=== PATIENT | male | born 1960 | race African-American/Black ===

== ENCOUNTER 2020-04-27 13:26 | Inpatient (IN) | payer MEDICARE, BC ==
[~2020-04-27] VITALS: Ht 175.3 cm; Wt 81.7 kg
[~2020-04-27 13:26] MED LIST: ASPI325T70 PO; CARV3.12 PO; CRESTOR5 MG PO; LISI2.5T PO; POTA10TA12 PO; RISP0.2519 PO
[2020-04-27 14:28] LABS: BASO # 0.1 x10^3/uL (0.0-0.2); BASO % 1 % (0-3); EOS # 0.3 x10^3/uL (0.0-0.7); EOS % 4 % (0-3); HEMATOCRIT 38.7 % (39.0-53.0); HEMOGLOBIN 13.2 g/dL (13.0-17.5); LYMPH # 1.4 x10^3/uL (1.0-4.8); LYMPH % 19 % (24-48); MEAN CORPUSCULAR HEMOGLOBIN 33 pg (25-35); MEAN CORPUSCULAR HGB CONC 34 g/dL (31-37); MEAN CORPUSCULAR VOLUME 96 fL (79-100); MONO # 0.7 x10^3/uL (0.0-1.1); MONO % 9 % (0-9); NEUT % 67 % (31-73); PLATELET COUNT 82 x10^3/uL (140-400); RED BLOOD COUNT 4.03 x10^6/uL (4.30-5.70); RED CELL DISTRIBUTION WIDTH 15.8 % (11.5-14.5); WHITE BLOOD COUNT 7.5 x10^3/uL (4.0-11.0)
--- NOTE | 2020-04-27 14:29 | EKG ---
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
[2020-04-27 14:41] LABS: CALCIUM 8.6 mg/dL (8.5-10.1); CREATININE 1.4 mg/dL (0.7-1.3); GFR 62.6
--- NOTE | 2020-04-27 14:59 | RAD ---
CHEST PA LATERAL History: Reason: dizziness, near syncope / Spl. Instructions: / History: Comparison: None. Findings: Frontal and lateral views of the chest were obtained.. Single lead left-sided ICD is present. Calcified granuloma involving the right midlung and calcified right hilar lymph nodes are present. The cardiomediastinal silhouette is normal. Pulmonary vasculature is normal. The lungs are clear. No pleural effusion or pneumothorax is seen. There is no acute bone abnormality. IMPRESSION: No acute cardiopulmonary process. Electronically signed by: Ace Conte MD (04/27/2020 2:56 PM) [id number]
[2020-04-27 15:08] LABS: ALBUMIN 3.6 g/dL (3.4-5.0); DIRECT BILIRUBIN 0.2 mg/dL (0.0-0.2); TOTAL BILIRUBIN 0.4 mg/dL (0.2-1.0); TOTAL PROTEIN 7.7 g/dL (6.4-8.2)
--- NOTE | 2020-04-27 15:10 | PHYS DOC ---
Past Medical History Past Medical History: Hypertension, PA, Other Additional Past Medical Histor: CARDIAC ARREST -' Past Surgical History: Other Additional Past Surgical Histo: AICD, R ANKLE Smoking Status: Current Every Day Smoker Alcohol Use: Heavy Additional Information: 3-6 'BEERS A DAY' 'MAYBE A SHOT A DAY' General Adult EDM: Chief Complaint: DIZZY/LIGHT HEADED HPI: HPI: Patient is a 5-year-old male who presents the emergency room after having a syncopal episode this morning. Family states that he had a syncopal episode on where he fell and hit his back. He has an appointment with his primary care doctor on Wednesday to be evaluated for this. This was his second syncopal episode in the last couple of months. This morning he was watching TV and got really sweaty and confused. Patient does not remember any of this. He states that when he passes out sometimes he does get dizzy but denies any other symptoms. He does not get chest pain, shortness of breath, headaches, dizziness, numbness, weakness. He states that sometimes he gets leg weakness on both sides. 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 Review of Systems: Review of Systems: General: Denies fever, chills, sweats, fatigue Eyes: Denies drainage, blurred vision, eye redness HENT: Denies rhinorrhea, sore throat, earache Respiratory: Denies cough, shortness of breath, wheezing Cardiac: Denies edema, palpitations, chest pain GI: Denies abdominal pain, Nausea, vomiting MSK: Denies back pain, neck pain Skin: Denies rash, jaundice Neuro: Denies headache. Reports dizziness Psychiatric: Denies SI/HI Heart Score: Risk Factors: Risk Factors: DM, Current or recent (<one month) smoker, HTN, HLP, family history of CAD, obesity. Risk Scores: Score 0 - 3: 2.5% MACE over next 6 weeks - Discharge Home Score 4 - 6: 20.3% MACE over next 6 weeks - Admit for Clinical Observation Score 7 - 10: 72.7% MACE over next 6 weeks - Early Invasive Strategies Allergies: Allergies: Allergies Coded Allergies Type Severity Reaction Last Updated Verified No Known Drug Allergies 02/12/16 No Physical Exam: PE: General: Awake, alert, NAD. Well Nourished, well hydrated. Cooperative HEENT: Atraumatic, EOMI, PERRL, airway patent, moist oral mucosa Neck: Supple, trachea midline Respiratory: CTA bilaterally, normal effort, no wheezing/crackles CV: RRR, no murmur, cap refill <2 GI: Soft, nondistended, nontender, no masses MSK: No obvious deformities Skin: Warm, dry, intact Neuro: A&O x3, speech NL, sensory and motor grossly intact, no focal deficits Psych: Normal affect, normal mood, not suicidal or homicidal Current Patient Data: Labs: Laboratory Tests Test 04/27/20 14:07 04/27/20 14:12 Glucose (Fingerstick) 88 mg/dL (70-99) White Blood Count 7.5 x10^3/uL (4.0-11.0) Red Blood Count 4.03 x10^6/uL (4.30-5.70) L Hemoglobin 13.2 g/dL (13.0-17.5) Hematocrit 38.7 % (39.0-53.0) L Mean Corpuscular Volume 96 fL (79-100) Mean Corpuscular Hemoglobin 33 pg (25-35) Mean Corpuscular Hemoglobin Concent 34 g/dL (31-37) Red Cell Distribution Width 15.8 % (11.5-14.5) H Platelet Count 82 x10^3/uL (140-400) L Neutrophils (%) (Auto) 67 % (31-73) Lymphocytes (%) (Auto) 19 % (24-48) L Monocytes (%) (Auto) 9 % (0-9) Eosinophils (%) (Auto) 4 % (0-3) H Basophils (%) (Auto) 1 % (0-3) Neutrophils # (Auto) 5.0 x10^3/uL (1.8-7.7) Lymphocytes # (Auto) 1.4 x10^3/uL (1.0-4.8) Monocytes # (Auto) 0.7 x10^3/uL (0.0-1.1) Eosinophils # (Auto) 0.3 x10^3/uL (0.0-0.7) Basophils # (Auto) 0.1 x10^3/uL (0.0-0.2) Sodium Level 136 mmol/L (136-145) Potassium Level 5.0 mmol/L (3.5-5.1) Chloride Level 100 mmol/L (98-107) Carbon Dioxide Level 25 mmol/L (21-32) Anion Gap 11 (6-14) Blood Urea Nitrogen 11 mg/dL (8-26) Creatinine 1.4 mg/dL (0.7-1.3) H Estimated GFR (Cockcroft-Gault) 62.6 Glucose Level 86 mg/dL (70-99) Calcium Level 8.6 mg/dL (8.5-10.1) Troponin I Quantitative < 0.017 ng/mL (0.000-0.055) Laboratory Tests 04/27/20 14:12 Laboratory Tests 04/27/20 14:12 Vital Signs: Vital Signs Date Time Temp Pulse Resp B/P (MAP) Pulse Ox O2 Delivery O2 Flow Rate FiO2 04/27/20 13:45 98.1 73 16 137/72 (93) 99 Room Air 98.1 EKG: EKG: [] Radiology/Procedures: Radiology/Procedures: [] Course & Med Decision Making: Course & Med Decision Making Pertinent Labs and Imaging studies reviewed. (See chart for details) Patient is 59-year-old male who presents to the emergency room after having a syncopal episode. Patient is now feeling normal. EKG is normal at this time. There is some uncertain what is the cause of the patient's symptoms. Diffe rential diagnosis includes arrhythmias, kidney failure, vasovagal, neurologic disorders, anemia. CBC, BMP, LFTs, EKG, troponin, BNP, CT head was ordered. Work-up is normal at this time. I have discussed the case with the patient's primary care physician Dr. Ruiz. At this time he recommends admission for cardiology evaluation. He would like a cardiology consult and an echocardiogram were ordered. I have discussed this with the family who are in agreement. Dragon Disclaimer: Dragon Disclaimer: This electronic medical record was generated, in whole or in part, using a voice recognition dictation system. Departure Departure Impression: Primary Impression: Syncope Disposition: 09 ADMITTED INPATIENT Condition: STABLE Referrals: CONNOR RUIZ MD (PCP) Justicifation of Admission Dx: Justifications for Admission: Justification of Admission Dx: Yes BRAVO REED MD Apr 27, 2020 15:10
--- NOTE | 2020-04-27 15:22 | RAD ---
RS Compliance Statement: One or more of the following individualized dose reduction techniques were utilized for this examination: 1. Automated exposure control 2. Adjustment of the mA and/or kV according to patient size 3. Use of iterative reconstruction technique CT HEAD WITHOUT CONTRAST History: Reason: confusion, syncope / Spl. Instructions: / History: Comparison: None. Technique: Axial images are obtained of the head from the skull base through the vertex without IV contrast. Findings: No mass-effect, midline shift, extra-axial fluid collection, hemorrhage, or obvious acute infarction is identified. Basilar cisterns are patent. The ventricles and sulci are prominent, consistent with age-related cerebral atrophy. There is minimal periventricular white matter hypoattenuation. This is a nonspecific finding but is commonly due to chronic small vessel ischemic disease. Bone windows demonstrate no acute calvarial abnormality. Severe mucosal thickening bilateral maxillary and ethmoid sinuses. There is no air-fluid level. Mastoid air cells are well aerated. IMPRESSION: 1. No acute intracranial abnormality. Electronically signed by: Baljinder Cotto MD (04/27/2020 3:19 PM) [id number]
[2020-04-27 17:06] LABS: BILIRUBIN,URINE NEGATIVE (NEG); CLARITY,URINE CLEAR; COLOR,URINE YELLOW; NITRITE,URINE NEGATIVE (NEG); PH,URINE 5.5 (<5.0-8.0); PROTEIN,URINE NEGATIVE (NEG-TRACE); UROBILINOGEN,URINE 0.2 mg/dL (0.2 mg/dL)
[2020-04-27 17:32] LABS: BACTERIA,URINE 0 /HPF (0-FEW); HYALINE CASTS, URINE FEW /HPF; RBC,URINE 0 /HPF (0-2); WBC,URINE 0 /HPF (0-4)
[2020-04-27 19:00] VITALS: BP 160/87
[2020-04-27] MEDS ORDERED: CRESTOR40 MG PO (19:39)
[2020-04-27] MEDS ORDERED: NITR0.4T22 SL (19:39)
[2020-04-27] MEDS ORDERED: RISP1TAB3 PO (19:39)
[2020-04-27] MEDS ORDERED: CARV25TA2 PO (19:39)
[2020-04-27] MEDS ORDERED: ASPI325T11 PO (19:39)
[2020-04-27] MEDS ORDERED: MULT-690 PO (19:39)
[2020-04-27] MEDS ORDERED: LISI10TA2 PO (19:39)
[2020-04-27] MEDS ORDERED: DIPH25CA58 PO (19:39)
[2020-04-27] MEDS ORDERED: NITROGLYCERIN SUBLINGUAL 0.4 MG BOTTLE OF 25. SL PRN (20:00)
[2020-04-27] MEDS: diphenhydrAMINE HCL 25 MG CAPSULE PO PRN (20:34)
[2020-04-27] MEDS: risperiDONE 1 MG TABLET. PO SCH (20:34)
[2020-04-27] MEDS: POTASSIUM CHLORIDE 10 MEQ TABLET.ER. PO SCH (20:34)
[2020-04-27] MEDS: ATORVASTATIN CALCIUM 40 MG TABLET. PO SCH (20:35)
[2020-04-27 21:13] LABS: MAGNESIUM 1.8 mg/dL (1.8-2.4)
[2020-04-27 21:14] LABS: CHOLESTEROL/HDL RATIO 2.2
[2020-04-27] MEDS ORDERED: NICOTINE 7MG PATCH. TD PRN (22:15)
--- NOTE | 2020-04-27 22:15 | NUR ---
Patient arrived to unit approx 1830 with nurse and patient daughter. Assessment complete, VS stable. Reviewed health history and medications with patient and daughter. Patient states that he fell on 04/25 and "blackout or something", states that he doesn't know why he fell. Daughter provided nurse with home medication list. Patients daughter states that patient drinks at least 6 beers per day and also drinks crown up to 1 pint per day. Patient smokes approx 1 ppd cigarettes. no complaints of pain at this time, resting comfortably on RA. Call light in reach, orientated patient to unit. reviewed visiting policy with patient daughter. Call light in reach, bed in low locked position, reminded patient to call before ambulating, will continue to monitor.
[2020-04-27 23:36] VITALS: BP 148/70
[2020-04-28] VITALS (9 sets, daily range): BP systolic 101–149; BP diastolic 66–81
--- NOTE | 2020-04-28 00:40 | NUR ---
per patient he is followed by cardiology at
[2020-04-28] MEDS: LORazepam 0.5 MG TABLET PO PRN (00:55)
[2020-04-28] MEDS: CARVEDILOL 12.5 MG TABLET. PO SCH ×2 (08:25→17:30)
[2020-04-28] MEDS: POTASSIUM CHLORIDE 10 MEQ TABLET.ER. PO SCH (08:25)
[2020-04-28] MEDS: LISINOPRIL 10 MG TABLET PO SCH (08:25)
[2020-04-28] MEDS: diphenhydrAMINE HCL 25 MG CAPSULE PO PRN ×3 (08:25→20:51)
[2020-04-28] MEDS: ASPIRIN ENTERIC COATED 325 MG TABLET.DR. PO SCH (08:25)
[2020-04-28] MEDS: risperiDONE 1 MG TABLET. PO SCH ×2 (08:26→20:51)
[2020-04-28] MEDS: MULTIVITAMIN I-VITE TABLET. PO SCH (08:26)
[2020-04-28] MEDS: THIAMINE 100 MG TABLET. PO SCH (08:26)
--- NOTE | 2020-04-28 10:32 | CONS ---
DATE OF CONSULTATION: 04/28/2020 REASON FOR CONSULTATION: Syncope. CONSULTING PHYSICIAN: Dr. Shiraz Ruiz. HISTORY OF PRESENT ILLNESS: The patient is a 59-year-old man with past medical history as noted below, who presented to the hospital in the setting of recurrent syncopal episodes. He does not have any associated prodromal symptoms nor any cardiovascular symptoms such as angina or palpitations. He had an episode 3 days prior to admission and another episode yesterday, which prompted ER arrival. Upon arrival to the ER, he had stable vital signs and was afebrile. His EKG was also unremarkable and he was admitted for further evaluation and treatment. PAST MEDICAL HISTORY: 1. Coronary artery disease with a prior history of 100% RCA occlusion in 2001. 2. Ischemic cardiomyopathy with the most recent ejection fraction of 55% per outside hospital records, status post single chamber ICD. 3. Hypertension. 4. Tobacco and alcohol abuse. 5. Prior history of ventricular tachycardia. 6. Sleep apnea. 7. Dyslipidemia. 8. History of hypoxic encephalopathy. SOCIAL HISTORY: As noted above. The patient uses alcohol and smokes cigarettes. FAMILY HISTORY: Noncontributory. ALLERGIES: No known drug allergies. REVIEW OF SYSTEMS: Negative unless otherwise mentioned above in HPI. PHYSICAL EXAMINATION: GENERAL: He is alert and oriented, no acute distress, cooperative. HEAD AND NECK: Unremarkable. CARDIAC: Regular rate and rhythm. RESPIRATORY: Normal. GASTROINTESTINAL: Within normal limits. MUSCULOSKELETAL: No obvious trauma. SKIN: No rashes. NEUROLOGIC: No focal deficits. PSYCHIATRIC: Normal mood and affect. DIAGNOSTIC STUDIES: Cardiac enzymes are negative x 1. Creatinine is at 1.4. EKG is unremarkable. Head CT reveals no acute abnormalities. Chest x-ray reveals no acute process. IMPRESSION: 1. Syncope: Etiology unclear. Review of prior records demonstrates that the patient does have a diagnosis of cough related syncope, this is likely a vasovagal episode. 2. History of ischemic cardiomyopathy, status post ICD for secondary prevention. He has not had any recent ischemic evaluation. RECOMMENDATIONS: We will plan for an echocardiogram to determine that he has a structurally normal heart and we will have his ICD interrogated to ensure no obvious arrhythmias were noted. No significant suspicion for ischemia at this time. Thank you for this consultation. CAREY ALEGRIA MD DR: SUNIL/jose JOB#: [id number] / [id number]
--- NOTE | 2020-04-28 11:06 | PDOC ---
Provider Note Provider Note history and physical dictated # [id number] Justicifation of Admission Dx: Justifications for Admission: Justification of Admission Dx: Yes CONNOR LEBLANC MD Apr 28, 2020 11:06
[2020-04-28] MEDS: NICOTINE 21MG PATCH. TD SCH (11:55)
--- NOTE | 2020-04-28 11:55 | HP ---
ADMIT DATE: 04/27/2020 LOCATION: He is in room 260. HISTORY OF PRESENT ILLNESS: The patient is a 59-year-old -Mex[place] male with history of hypertension, hyperlipidemia, coronary artery disease, alcoholism, cigarette smoker, who has a history of sudden cardiac , resuscitated, has an AICD with a generator replaced in 2016 and sustained a myocardial infarction in 2001. He was admitted to [facility] at the Emergency Room on 04/27/2020 with a syncopal episode. He is a poor historian and he does have a history of hypoxic encephalopathy and had stents from his previous cardiac arrest. He apparently had a syncopal episode last while sitting down and watching TV when he developed some diaphoresis and dizziness without any chest pain or shortness of breath. Apparently, he had one yesterday although yesterday according to the Cardiology note he denies that. In any case, he says he has had a couple of syncopal episodes, he believes in the last month. Denies any exertional chest pain or shortness of breath. He smokes about a pack per day, drinks excessive beer and hard liquor. He is therefore admitted for further evaluation of syncope. ALLERGIES: None. MEDICATIONS: Aspirin 325 mg every day, carvedilol 25 mg b.i.d., Crestor 40 mg every day, lisinopril 10 mg every day, multiple vitamin once a day, nitroglycerin 0.4 mg sublingual p.r.n., potassium chloride 10 mEq b.i.d., risperidone 1 mg b.i.d. PAST MEDICAL HISTORY: Significant for sudden cardiac arrest in 2016 with hypoxic encephalopathy and AICD placed. He had a myocardial infarction in 2001. He has coronary artery disease and his last echocardiogram showed a left ventricular ejection fraction of 50%. He has hypertension, hyperlipidemia, myocardial infarction in 2001, gastroesophageal reflux disease, open reduction and internal fixation for right ankle fracture in 2001. He has chronic kidney disease stage 2. he has baseline serum creatinine 1.3. SOCIAL HISTORY: Drinks excessive alcohol, beer and hard liquor. Smokes about a pack per day of cigarettes. FAMILY HISTORY: Noncontributory. REVIEW OF SYSTEMS: GENERAL: Denies any fever, chills or sweats in the last 3 days, although he did have sweats at one time when he had a syncopal episode. CARDIOVASCULAR: No chest pain. PULMONARY: No cough or shortness of breath. GASTROINTESTINAL: No constipation. ENDOCRINE: No diabetes mellitus. SKIN: No rashes. Rest of systems reviewed are negative except as stated in history of present illness. PHYSICAL EXAMINATION: VITAL SIGNS: Temperature 98.5 degrees, apical pulse is 82, respiratory rate 16, blood pressure 149/78. Oxygen saturation 95% on room air. HEENT: Gaze is conjugate. Mouth is symmetrical. NECK: There is no cervical lymphadenopathy or carotid bruits. HEART: S1, S2. There is no S3 or murmur. LUNGS: Clear. ABDOMEN: Soft with no hepatosplenomegaly or mass. He has got umbilical hernia. EXTREMITIES: Lower extremities without edema. SKIN: No rashes. NEUROLOGIC: He has a little bit of a tremor in his hands when he gripped my hands. Otherwise, he did not have a resting tremor. 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 There is also no facial asymmetry. SKIN: No rashes. LABORATORY DATA: His white count 7.5, hemoglobin 15.2 with a platelet count of 82,000. He had 67 polys, 19 lymphocytes. He had a sodium 136, potassium 5.0, chloride was 100, total CO2 is 25, BUN 11, creatinine 1.4, SGOT of 109, SGPT of 103. His troponin level is less than 0.017. Albumin 3.6. Total cholesterol was 134. LDL cholesterol 65, HDL cholesterol was 62 and triglycerides were 37. EKG showed no acute change in sinus rhythm. Chest x-ray was unremarkable with clear lungs and CD noted. Pulmonary vascularity was normal. Heart size was normal. There was no pneumothorax. CAT scan of the head was unremarkable for any acute abnormality. He had severe mucosal thickening of the bilateral maxillary and ethmoid sinuses. No air fluid level. Mastoid air cells are well aerated. ASSESSMENT: 1. Recurrent syncope of undetermined etiology. 2. Coronary artery disease. 3. Hypertension. 4. Hyperlipidemia. 5. Alcoholism. 6. Cigarette smoker. 7. Alcohol hepatitis. 8. 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 9. Cardiac arrest and sudden . 10. Chronic kidney disease stage 2. 11. Thrombocytopenia, suspect it is related to his alcoholism. PLAN: At this time is to consult Dr. Hilton who has already seen the patient. An echocardiogram has been ordered. We will have his defibrillator/pacemaker interrogated. Also consult the condominium property manager for the thrombocytopenia and also check vitamin B12 level. I have resumed his multiple vitamin. Avoid nonsteroidal anti-inflammatory drugs. Decrease his potassium chloride to 10 mEq every day from b.i.d. His potassium is on the high side of normal. Continue with heart monitoring and we will put him on a nicotine patch. We discussed importance of quitting alcohol and smoking cessation. He has not been motivated in the past to do so. We will order some p.r.n. lorazepam because he has alcohol withdrawal. His magnesium level was normal at 1.8. CONNOR LEBLANC MD DR: JULIA/jose JOB#: [id number] / [id number]
[2020-04-28] MEDS: ATORVASTATIN CALCIUM 40 MG TABLET. PO SCH (20:51)
[2020-04-29 03:26] VITALS: BP 126/85
[2020-04-29 05:12] LABS: BASO # 0.1 x10^3/uL (0.0-0.2); BASO % 1 % (0-3); EOS # 0.3 x10^3/uL (0.0-0.7); EOS % 5 % (0-3); HEMATOCRIT 37.8 % (39.0-53.0); HEMOGLOBIN 12.9 g/dL (13.0-17.5); LYMPH # 1.4 x10^3/uL (1.0-4.8); LYMPH % 24 % (24-48); MEAN CORPUSCULAR HEMOGLOBIN 33 pg (25-35); MEAN CORPUSCULAR HGB CONC 34 g/dL (31-37); MEAN CORPUSCULAR VOLUME 98 fL (79-100); MONO # 0.7 x10^3/uL (0.0-1.1); MONO % 12 % (0-9); NEUT # 3.4 x10^3/uL (1.8-7.7); NEUT % 58 % (31-73); PLATELET COUNT 67 x10^3/uL (140-400); RED BLOOD COUNT 3.86 x10^6/uL (4.30-5.70); RED CELL DISTRIBUTION WIDTH 15.9 % (11.5-14.5); WHITE BLOOD COUNT 5.7 x10^3/uL (4.0-11.0)
[2020-04-29 05:33] LABS: CALCIUM 9.2 mg/dL (8.5-10.1); CREATININE 1.5 mg/dL (0.7-1.3); GFR 57.8
[2020-04-29 07:00] VITALS: BP 157/84
[2020-04-29] MEDS: MULTIVITAMIN I-VITE TABLET. PO SCH (08:20)
[2020-04-29] MEDS: NICOTINE 21MG PATCH. TD SCH (08:20)
[2020-04-29] MEDS: THIAMINE 100 MG TABLET. PO SCH (08:20)
[2020-04-29] MEDS: LISINOPRIL 10 MG TABLET PO SCH (08:21)
[2020-04-29] MEDS: CARVEDILOL 12.5 MG TABLET. PO SCH ×2 (08:21→17:20)
[2020-04-29] MEDS: risperiDONE 1 MG TABLET. PO SCH ×2 (08:22→21:06)
[2020-04-29] MEDS: ASPIRIN ENTERIC COATED 325 MG TABLET.DR. PO SCH (08:22)
[2020-04-29] MEDS: POTASSIUM CHLORIDE 10 MEQ TABLET.ER. PO SCH (08:22)
--- NOTE | 2020-04-29 10:33 | PDOC ---
PROGRESS NOTES Date of Service DATE: 04/29/20 TIME: 10:29 Subjective Subjective confused last night. discussed with patient and family that he needs to avoid alcohol and cigarettes. lab reviewed,. discussed with nurse. no arrhythmia. denies dizziness with standing up and walking. Objective Objective Vital Signs Date Time Temp Pulse Resp B/P (MAP) Pulse Ox O2 Delivery O2 Flow Rate FiO2 04/29/20 08:21 89 157/84 04/29/20 07:00 98.0 20 98 Room Air 98.0 Intake and Output 04/29/20 07:00 Intake Total 2160 ml Balance 2160 ml Intake Oral 2160 ml # Voids 11 Physical Exam Abdomen: Soft Heart: Regular rate, Normal S1, Normal S2 Extremities: No edema General: Alert HEENT: Atraumatic Lungs: Clear to auscultation Neuro: Normal speech Psych/Mental Status: Mental status NL, Mood NL, Other (oriented to year and month and place) Skin: No rashes Assessment Assessment Problems1. Recurrent syncope of undetermined etiology. 2. Coronary artery disease. 3. Hypertension. 4. Hyperlipidemia. 5. Alcoholism. 6. Cigarette smoker. 7. Alcohol hepatitis. 8. 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 9. Cardiac arrest and sudden . 10. Chronic kidney disease stage 2. 11. Thrombocytopenia, suspect it is related to his alcoholism. altered mental status. suspect due to alcohol withdrawal Medical Problems: (1) Syncope Status: Acute Plan Plan of Care consult dr. luong MRI brain echocardiogram iv lorazepam prn alcohol withdrawal telemetry alcohol and cigarette smoking cessation discussed with patient and family Comment Review of Relevant I have reviewed the following items kyara (where applicable) has been applied. Labs Laboratory Tests Test 04/27/20 14:07 04/27/20 14:12 04/27/20 16:59 04/29/20 04:20 Glucose (Fingerstick) 88 mg/dL (70-99) White Blood Count 7.5 x10^3/uL (4.0-11.0) 5.7 x10^3/uL (4.0-11.0) Red Blood Count 4.03 x10^6/uL (4.30-5.70) 3.86 x10^6/uL (4.30-5.70) Hemoglobin 13.2 g/dL (13.0-17.5) 12.9 g/dL (13.0-17.5) Hematocrit 38.7 % (39.0-53.0) 37.8 % (39.0-53.0) Mean Corpuscular Volume 96 fL (79-100) 98 fL (79-100) Mean Corpuscular Hemoglobin 33 pg (25-35) 33 pg (25-35) Mean Corpuscular Hemoglobin Concent 34 g/dL (31-37) 34 g/dL (31-37) Red Cell Distribution Width 15.8 % (11.5-14.5) 15.9 % (11.5-14.5) Platelet Count 82 x10^3/uL (140-400) 67 x10^3/uL (140-400) Neutrophils (%) (Auto) 67 % (31-73) 58 % (31-73) Lymphocytes (%) (Auto) 19 % (24-48) 24 % (24-48) Monocytes (%) (Auto) 9 % (0-9) 12 % (0-9) Eosinophils (%) (Auto) 4 % (0-3) 5 % (0-3) Basophils (%) (Auto) 1 % (0-3) 1 % (0-3) Neutrophils # (Auto) 5.0 x10^3/uL (1.8-7.7) 3.4 x10^3/uL (1.8-7.7) Lymphocytes # (Auto) 1.4 x10^3/uL (1.0-4.8) 1.4 x10^3/uL (1.0-4.8) Monocytes # (Auto) 0.7 x10^3/uL (0.0-1.1) 0.7 x10^3/uL (0.0-1.1) Eosinophils # (Auto) 0.3 x10^3/uL (0.0-0.7) 0.3 x10^3/uL (0.0-0.7) Basophils # (Auto) 0.1 x10^3/uL (0.0-0.2) 0.1 x10^3/uL (0.0-0.2) Sodium Level 136 mmol/L (136-145) 138 mmol/L (136-145) Potassium Level 5.0 mmol/L (3.5-5.1) 4.0 mmol/L (3.5-5.1) Chloride Level 100 mmol/L (98-107) 103 mmol/L (98-107) Carbon Dioxide Level 25 mmol/L (21-32) 27 mmol/L (21-32) Anion Gap 11 (6-14) 8 (6-14) Blood Urea Nitrogen 11 mg/dL (8-26) 17 mg/dL (8-26) Creatinine 1.4 mg/dL (0.7-1.3) 1.5 mg/dL (0.7-1.3) Estimated GFR (Cockcroft-Gault) 62.6 57.8 Glucose Level 86 mg/dL (70-99) 94 mg/dL (70-99) Calcium Level 8.6 mg/dL (8.5-10.1) 9.2 mg/dL (8.5-10.1) Magnesium Level 1.8 mg/dL (1.8-2.4) Total Bilirubin 0.4 mg/dL (0.2-1.0) Direct Bilirubin 0.2 mg/dL (0.0-0.2) Aspartate Amino Transf (AST/SGOT) 103 U/L (15-37) Alanine Aminotransferase (ALT/SGPT) 109 U/L (16-63) Alkaline Phosphatase 55 U/L (46-116) Troponin I Quantitative < 0.017 ng/mL (0.000-0.055) Total Protein 7.7 g/dL (6.4-8.2) Albumin 3.6 g/dL (3.4-5.0) Triglycerides Level 37 mg/dL (0-150) Cholesterol Level 134 mg/dL (0-200) LDL Cholesterol, Calculated 65 mg/dL (0-100) VLDL Cholesterol, Calculated 7 mg/dL (0-40) Non-HDL Cholesterol Calculated 72 mg/dL (0-129) HDL Cholesterol 62 mg/dL (40-60) Cholesterol/HDL Ratio 2.2 Urine Collection Type Unknown Urine Color Yellow Urine Clarity Clear Urine pH 5.5 (<5.0-8.0) Urine Specific [place] 1.010 (1.000-1.030) Urine Protein Negative mg/dL (NEG-TRACE) Urine Glucose (UA) Negative mg/dL (NEG) Urine Ketones (Stick) Negative mg/dL (NEG) Urine Blood Negative (NEG) Urine Nitrite Negative (NEG) Urine Bilirubin Negative (NEG) Urine Urobilinogen Dipstick 0.2 mg/dL (0.2 mg/dL) Urine Leukocyte Esterase Negative (NEG) Urine RBC 0 /HPF (0-2) Urine WBC 0 /HPF (0-4) Urine Bacteria 0 /HPF (0-FEW) Urine Hyaline Casts Few /HPF Urine Mucus Slight /LPF Laboratory Tests Test 04/29/20 04:20 White Blood Count 5.7 x10^3/uL (4.0-11.0) Red Blood Count 3.86 x10^6/uL (4.30-5.70) Hemoglobin 12.9 g/dL (13.0-17.5) Hematocrit 37.8 % (39.0-53.0) Mean Corpuscular Volume 98 fL (79-100) Mean Corpuscular Hemoglobin 33 pg (25-35) Mean Corpuscular Hemoglobin Concent 34 g/dL (31-37) Red Cell Distribution Width 15.9 % (11.5-14.5) Platelet Count 67 x10^3/uL (140-400) Neutrophils (%) (Auto) 58 % (31-73) Lymphocytes (%) (Auto) 24 % (24-48) Monocytes (%) (Auto) 12 % (0-9) Eosinophils (%) (Auto) 5 % (0-3) Basophils (%) (Auto) 1 % (0-3) Neutrophils # (Auto) 3.4 x10^3/uL (1.8-7.7) Lymphocytes # (Auto) 1.4 x10^3/uL (1.0-4.8) Monocytes # (Auto) 0.7 x10^3/uL (0.0-1.1) Eosinophils # (Auto) 0.3 x10^3/uL (0.0-0.7) Basophils # (Auto) 0.1 x10^3/uL (0.0-0.2) Sodium Level 138 mmol/L (136-145) Potassium Level 4.0 mmol/L (3.5-5.1) Chloride Level 103 mmol/L (98-107) Carbon Dioxide Level 27 mmol/L (21-32) Anion Gap 8 (6-14) Blood Urea Nitrogen 17 mg/dL (8-26) Creatinine 1.5 mg/dL (0.7-1.3) Estimated GFR (Cockcroft-Gault) 57.8 Glucose Level 94 mg/dL (70-99) Calcium Level 9.2 mg/dL (8.5-10.1) Medications Current Medications Aspirin (Ecotrin) 325 mg DAILY PO Last administered on 04/29/20 08:22; Start 04/28/20 at 09:00 Diphenhydramine HCl (Benadryl) 25 mg PRN Q4HRS PRN PO ALLERGIES Last administered on 04/28/20 20:51; Start 04/27/20 at 20:00 Lisinopril (Prinivil) 10 mg DAILY PO Last administered on 04/29/20 08:21; Start 04/28/20 at 09:00 Nitroglycerin (Nitrostat) 0.4 mg PRN Q5MIN PRN SL CHEST PAIN; Start 04/27/20 at 20:00 Potassium Chloride (Klor-Con) 10 meq BID PO Last administered on 04/28/20 08:25; Start 04/27/20 at 21:00; Stop 04/28/20 at 10:56; Status DC Risperidone (RisperDAL) 1 mg BID PO Last administered on 04/29/20 08:22; Start 04/27/20 at 21:00 Carvedilol (Coreg) 25 mg BIDWMEALS PO Last administered on 04/29/20 08:21; Start 04/28/20 at 08:00 Multivitamins/ Minerals (I-Alex) 1 tab DAILY PO Last administered on 04/29/20 08:20; Start 04/28/20 at 09:00 Atorvastatin Calcium (Lipitor) 80 mg QHS PO Last administered on 04/28/20 20:51; Start 04/27/20 at 21:00 Thiamine Mononitrate (Vitamin B-1) 100 mg DAILY PO Last administered on 04/29/20 08:20; Start 04/28/20 at 09:00 Lorazepam (Ativan) 0.5 mg PRN Q6HRS PRN PO ANXIETY / AGITATION Last administered on 04/28/20 00:55; Start 04/27/20 at 20:00 Nicotine (Nicoderm Cq 7mg) 1 patch PRN DAILY PRN TD SMOKING CESSATION; Start 04/27/20 at 22:15; Stop 04/28/20 at 10:59; Status DC Potassium Chloride (Klor-Con) 10 meq DAILY PO Last administered on 04/29/20at 08:22; Start 04/29/20 at 09:00 Nicotine (Nicoderm Cq 21mg) 1 patch DAILY TD Last administered on 04/29/20at 08:20; Start 04/28/20 at 12:00 Lorazepam (Ativan Inj) 1 mg PRN Q6HRS PRN IVP ANXIETY / AGITATION; Start 04/28/20 at 18:00 Active Scripts Active Reported NITROGLYCERIN SubLingual (Nitroglycerin) 0.4 Mg Tab.subl 0.4 Mg SL PRN Q5MIN PRN Benadryl (Diphenhydramine Hcl) 25 Mg Capsule 25 Mg PO PRN Q4HRS PRN Centrum Silver Men Tablet (Multivit-Min/FA/Lycopen/Lutein) 1 Each Tablet 1 Each PO DAILY Aspirin Ec (Aspirin) 325 Mg Tablet.dr 325 Mg PO DAILY Crestor (Rosuvastatin Calcium) 40 Mg Tablet 40 Mg PO HS Risperidone 1 Mg Tablet 1 Mg PO BID Carvedilol 25 Mg Tablet 25 Mg PO BIDWMEALS Lisinopril 10 Mg Tablet 10 Mg PO DAILY Potassium Chloride (Potassium Chloride) 10 Meq Capsule.er 10 Meq PO BID Vitals/I & O Vital Sign - Last 24 Hours 04/28/20 04/28/20 04/28/20 04/28/20 11:21 11:25 11:30 11:35 Temp 98.4 98.4 Pulse 65 87 93 94 Resp 16 B/P (MAP) 134/81 (98) 140/75 (96) 120/66 (84) 109/77 (88) Pulse Ox 95 O2 Delivery Room Air 04/28/20 04/28/20 04/28/20 04/28/20 14:50 17:30 19:45 19:50 Temp 98.2 98.0 98.2 98.0 Pulse 89 89 99 Resp 18 18 B/P (MAP) 111/73 (86) 111/73 101/68 (79) Pulse Ox 96 97 O2 Delivery Room Air Room Air Room Air 04/28/20 04/29/20 04/29/20 04/29/20 23:00 03:26 07:00 08:21 Temp 98.6 97.1 98.0 98.6 97.1 98.0 Pulse 91 98 89 89 Resp 20 B/P (MAP) 118/66 (83) 126/85 (99) 157/84 (108) 157/84 Pulse Ox 97 92 98 O2 Delivery Room Air Room Air Room Air 04/29/20 08:21 Pulse 89 B/P (MAP) 157/84 Intake and Output 04/28/20 04/28/20 04/29/20 15:00 23:00 07:00 Intake Total 480 ml 1140 ml 540 ml Balance 480 ml 1140 ml 540 ml Justicifation of Admission Dx: Justifications for Admission: Justification of Admission Dx: Yes CONNOR LEBLANC MD Apr 29, 2020 10:33
[2020-04-29 10:44] VITALS: BP 142/77
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
--- NOTE | 2020-04-29 12:41 | PDOC ---
DANIEL HERNANDEZ [employer]OL SETTER 04/29/20 1241: CARDIO Progress Notes Date and Time Date of Service 04/29/20 Time of Evaluation 1235 Subjective Subjective: No Chest Pain, No shortness of breath, No Palpitations Vitals Vitals Vital Signs Date Time Temp Pulse Resp B/P (MAP) Pulse Ox O2 Delivery O2 Flow Rate FiO2 04/29/20 10:44 97.9 69 20 142/77 (98) 98 Room Air 97.9 Weight Weight [ ] Input and Output Intake and Output Intake and Output 04/29/20 07:00 Intake Total 2160 ml Balance 2160 ml Intake Oral 2160 ml # Voids 11 Laboratory Labs Laboratory Tests Test 04/29/20 04:20 White Blood Count 5.7 x10^3/uL (4.0-11.0) Red Blood Count 3.86 x10^6/uL (4.30-5.70) Hemoglobin 12.9 g/dL (13.0-17.5) Hematocrit 37.8 % (39.0-53.0) Mean Corpuscular Volume 98 fL (79-100) Mean Corpuscular Hemoglobin 33 pg (25-35) Mean Corpuscular Hemoglobin Concent 34 g/dL (31-37) Red Cell Distribution Width 15.9 % (11.5-14.5) Platelet Count 67 x10^3/uL (140-400) Neutrophils (%) (Auto) 58 % (31-73) Lymphocytes (%) (Auto) 24 % (24-48) Monocytes (%) (Auto) 12 % (0-9) Eosinophils (%) (Auto) 5 % (0-3) Basophils (%) (Auto) 1 % (0-3) Neutrophils # (Auto) 3.4 x10^3/uL (1.8-7.7) Lymphocytes # (Auto) 1.4 x10^3/uL (1.0-4.8) Monocytes # (Auto) 0.7 x10^3/uL (0.0-1.1) Eosinophils # (Auto) 0.3 x10^3/uL (0.0-0.7) Basophils # (Auto) 0.1 x10^3/uL (0.0-0.2) Sodium Level 138 mmol/L (136-145) Potassium Level 4.0 mmol/L (3.5-5.1) Chloride Level 103 mmol/L (98-107) Carbon Dioxide Level 27 mmol/L (21-32) Anion Gap 8 (6-14) Blood Urea Nitrogen 17 mg/dL (8-26) Creatinine 1.5 mg/dL (0.7-1.3) Estimated GFR (Cockcroft-Gault) 57.8 Glucose Level 94 mg/dL (70-99) Calcium Level 9.2 mg/dL (8.5-10.1) Physical Exam HEENT: Neck Supple W Full Motion Chest: Symmetric LUNGS: Clear to Auscultation Heart: S1S2, RRR Abdomen: Soft N/T Extremities: No Edema Neurology: alert, confused Assessment Assessment 1. Syncope; ? vasovagal. Device interrogation without significant contributing arrhythmia. No orthostasis noted. EEG today 2 . 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 ICM; s/p AICD. Most recent echo shows LV recovery with EF 55% 4. Hypertension; controlled 5. Dyslipidemia; Lipids on goal 6. CKD 7. H/o VT, cardiac arrest 8. JANINE 9. Tobacco and alcohol abuse. Discussed cessation 10. H/o hypoxic encephalopathy Recommendations Secondary prevention Continue ASA, statin, BB, ACEi Alcohol cessation Consider outpatient ischemic evaluation Supportive care Justicifation of Admission Dx: Justifications for Admission: Justification of Admission Dx: Yes CAREY ALEGRIA MD 04/29/20 1734: CARDIO Progress Notes Plan Plan Patient seen and examined. Agree with above nurse practitioner note. Supportive care. DANIEL HERNANDEZ APRN Apr 29, 2020 12:41 CAREY ALEGRIA MD Apr 29, 2020 17:34
[2020-04-29 14:49] VITALS: BP_SYST 129; BP_SYST 143; BP_DIAS 64; BP_DIAS 95
--- NOTE | 2020-04-29 15:34 | EEG ---
DATE OF SERVICE: 04/29/2020 EEG NUMBR: [id number] OBJECTIVE: The patient is a 59-year-old male with episodes of syncope as well as confusion episodes. DESCRIPTION: This is a digital study. Electrodes are placed according to the international 10-20 system. Bipolar and referential montages are available. Activation procedures typically include hyperventilation and intermittent photic stimulation. INTERPRETATION: The waking background consists of 8-9 Hz, 20-50 microvolt activity, symmetrically distributed over parietooccipital regions and reactive to eye opening. Hyperventilation and intermittent photic stimulation are noncontributory. Stage 1 sleep is achieved with normal electroencephalogram patterns. IMPRESSION: This electroencephalogram with the patient awake and asleep is within normal limits. There is no focal, paroxysmal, or epileptiform activity. Thank you for letting us help with the patient's care. RADHA CLARK MD DR: ANA/jose JOB#: [id number] / [id number]
--- NOTE | 2020-04-29 16:06 | NUR ---
SS following for discharge planning. SS reviewed pt chart and discussed with pt RN. Pt is from home with spouse and is currently on room air. SS will continue to follow for discharge planning.
--- NOTE | 2020-04-29 16:31 | CARD ---
MR#: [id number] Date of Study: 04/29/2020 Ordering Physician: BRAVO REED, Referring Physician: BRAVO REED, Tech: Theodora Neal NUPUR APPROVED REPORT EXAM: Two-dimensional and M-mode echocardiogram with Doppler and color Doppler. Other Information Quality : Good INDICATION Syncope 2D DIMENSIONS RVDd2.7 (2.9-3.5cm)Left Atrium(2D)3.3 (1.6-4.0cm) IVSd1.0 (0.7-1.1cm)Aortic Root(2D)3.1 (2.0-3.7cm) LVDd4.4 (3.9-5.9cm)LVOT Diameter2.3 (1.8-2.4cm) PWd1.1 (0.7-1.1cm)LVDs3.1 (2.5-4.0cm) FS (%) 29.4 %SV50.1 ml LVEF(%)56.5 (>50%) Aortic Valve AoV Peak Willy.121.8cm/sAoV VTI20.3cm AO Peak GR.5.9mmHgLVOT Peak Willy.85.5cm/s AO Mean GR.3mmHgAVA (VMAX)2.85cm2 LYNN (VTI)3.10cm2 Mitral Valve MV E Fhsamvph42.5cm/sMV DECEL [id number] MV A Evhmjinz91.9cm/sE/A Ratio0.7 Tricuspid Valve TR P. Sxlmhvvx300tj/sRAP [id number] TR Peak Gr.23bgSaQWAE72qhWs Pulmonary Vein S1 Chtfspfo30.4cm/sD2 Lbwfubav02.6cm/s LEFT VENTRICLE The left ventricle is normal size. There is normal left ventricular wall thickness. The left ventricu lar systolic function is normal and the ejection fraction is within normal range. The Ejection Fracti on is 55-60%. There is mild hypokinesis in the basal posterior wall. Transmitral Doppler flow pattern is Grade I-abnormal relaxation pattern. RIGHT VENTRICLE The right ventricle is normal size. The right ventricular systolic function is normal. A pacemaker le ad is present in the right ventricle ATRIA The left atrium size is normal. The right atrium size is normal. The interatrial septum is intact wit h no evidence for an atrial septal defect or patent foramen ovale as noted on 2-D or Doppler imaging. AORTIC VALVE The aortic valve is calcified but opens well. Doppler and Color Flow revealed no significant aortic r egurgitation. There is no significant aortic valvular stenosis. MITRAL VALVE The mitral valve is normal in structure and function. There is no evidence of mitral valve prolapse. There is no mitral valve stenosis. Doppler and Color-flow revealed trace mitral regurgitation. TRICUSPID VALVE The tricuspid valve is normal in structure and function. Doppler and Color Flow revealed trace to mil d tricuspid regurgitation. The PA pressure was estimated at 28 mmHg. There is no tricuspid valve sten osis. PULMONIC VALVE The pulmonic valve is not well visualized. Doppler and Color Flow revealed no pulmonic valvular regur gitation. There is no pulmonic valvular stenosis. GREAT VESSELS The aortic root is normal in size. The ascending aorta is normal in size. The IVC is normal in size a nd collapses >50% with inspiration. PERICARDIAL EFFUSION There is no evidence of significant pericardial effusion. Critical Notification Critical Value: No <Conclusion> The left ventricle is normal size. The left ventricular systolic function is normal and the ejection fraction is within normal range. The Ejection Fraction is 55-60%. There is mild hypokinesis in the basal posterior wall. Doppler and Color Flow revealed no significant aortic regurgitation. There is no significant aortic valvular stenosis. Doppler and Color-flow revealed trace mitral regurgitation. Doppler and Color Flow revealed trace to mild tricuspid regurgitation. The PA pressure was estimated at 28 mmHg. A pacemaker lead is present in the right ventricle Signed by : Rodney Kraus MD Electronically Approved : 04/29/2020 16:31:03
--- NOTE | 2020-04-29 17:52 | PDOC1 ---
History & Psych Evaluation Date of Service: DOS: DATE: 04/29/20 TIME: 17:51 Source: Source: Caregiver, Chart review, Patient Identification: Identification 59-year-old -[place] male with a history of TBI History of Present Illness: HPI: He is a 59-year-old -[place] gentleman admitted with multiple syncopal episodes while watching TV. Additionally for the last 6 months he has been having altered mental status and intermittent confusion. Previous history is significant for TBI following myocardial infarction in incident of sudden cardiac . Later he developed behavioral disturbances and suicidality try to shoot himself. He was a stable on risperidone 1 mg twice a day for years. 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 Upon interview, he appears cooperative and interactive. He recognized the magnetic tape typewriter operator being his provider for a year. Initially, he presented with derailment, and having rambling thought process. Stating, he was doing fairly well on risperidone 1 mg twice daily. However, history of noncompliance as he is off of his risperidone for a week. Stating, he has been drinking heavily including six packs of beer and 2-3 shots of liquor every day. Aside from that, he denies any suicidal or homicidal thoughts. Denies any auditory or visual hallucinations. No evidence of amy or hypomania. Past Psychiatric History: History of TBI, impulsive and agitated behavior. Denies history of psychiatric hospital admission. Previously attempted suicide. Past Medical History: Past Medical History: A-Fib, High Cholesterol, Hypertension, NC, Other Additional Past Medical Histor: emphysema, prostate ca, colorectal ca, Past Surgical History: Coronary Bypass Surgery, Hip Replacement, Other Additional Past Surgical Histo: cardiac stents placed, TURP Smoking Status: Former Smoker Alcohol Use: Heavy Family History: Denies family history of psychiatric illness and suicide Social History: Social History: Lives with daughter and . He has a disabled and a caregiver of her. History of heavy alcohol abuse. Denies illicit substance use Current Medications: Current Medications Current Medications Medications (Trade) Dose Ordered Sig/Niki Start Time Stop Time Status Last Admin Dose Admin Aspirin (Ecotrin) 325 mg DAILY 04/28/20 09:00 04/29/20 08:22 325 MG Atorvastatin Calcium (Lipitor) 80 mg QHS 04/27/20 21:00 04/28/20 20:51 80 MG Carvedilol (Coreg) 25 mg BIDWMEALS 04/28/20 08:00 04/29/20 17:20 25 MG Diphenhydramine HCl (Benadryl) 25 mg PRN Q4HRS PRN 04/27/20 20:00 04/28/20 20:51 25 MG Lisinopril (Prinivil) 10 mg DAILY 04/28/20 09:00 04/29/20 08:21 10 MG Lorazepam (Ativan Inj) 1 mg PRN Q6HRS PRN 04/28/20 18:00 Lorazepam (Ativan) 0.5 mg PRN Q6HRS PRN 04/27/20 20:00 04/28/20 00:55 0.5 MG Multivitamins 10 ml/Thiamine HCl 100 mg/Folic Acid 1 mg/Sodium Chloride 1,011.2 ml @ 100 mls/ hr DAILY 04/30/20 09:00 05/04/20 19:07 Multivitamins/ Minerals (I-Alex) 1 tab DAILY 04/28/20 09:00 04/29/20 08:20 1 TAB Nicotine (Nicoderm Cq 21mg) 1 patch DAILY 04/28/20 12:00 04/29/20 08:20 1 PATCH Nicotine (Nicoderm Cq 7mg) 1 patch PRN DAILY PRN 04/27/20 22:15 04/28/20 10:59 DC Nitroglycerin (Nitrostat) 0.4 mg PRN Q5MIN PRN 04/27/20 20:00 Potassium Chloride (Klor-Con) 10 meq DAILY 04/29/20 09:00 04/29/20 08:22 10 MEQ Risperidone (RisperDAL) 1 mg BID 04/27/20 21:00 04/29/20 08:22 1 MG Thiamine Mononitrate (Vitamin B-1) 100 mg DAILY 04/28/20 09:00 04/29/20 11:39 DC 04/29/20 08:20 100 MG Thiamine HCl (Thiamine Im) 100 mg DAILY 04/30/20 09:00 05/04/20 09:01 Allergies: Allergies: Coded Allergies: No Known Drug Allergies (Unverified , 02/12/16) Mental Status Examination: Mental Status Examination -[place] gentleman appears as a stated age Cooperative Thought processes rambling Denies suicidal or homicidal thoughts. Denies auditory or visual hallucinations No abnormal perception. Mood is depressed and anxious Affect is dysthymic Insight is fair Judgment is fair Impulse control is fair Recent and remote memory impaired ROS: 14 point review of system is otherwise negative except for stated above. Physical Exam: Refer to Physician's note. TROLLEY CLEANER: No focal deficit MSK: No EPS, TDK, or abnormal involuntary movements Vitals: Vitals Vital Signs Date Time Temp Pulse Resp B/P (MAP) Pulse Ox O2 Delivery O2 Flow Rate FiO2 04/29/20 17:20 83 143/95 04/29/20 14:49 98.3 20 98 Room Air 98.3 Labs: Labs Laboratory Tests Test 04/29/20 04:20 White Blood Count 5.7 x10^3/uL (4.0-11.0) Red Blood Count 3.86 x10^6/uL (4.30-5.70) Hemoglobin 12.9 g/dL (13.0-17.5) Hematocrit 37.8 % (39.0-53.0) Mean Corpuscular Volume 98 fL (79-100) Mean Corpuscular Hemoglobin 33 pg (25-35) Mean Corpuscular Hemoglobin Concent 34 g/dL (31-37) Red Cell Distribution Width 15.9 % (11.5-14.5) Platelet Count 67 x10^3/uL (140-400) Neutrophils (%) (Auto) 58 % (31-73) Lymphocytes (%) (Auto) 24 % (24-48) Monocytes (%) (Auto) 12 % (0-9) Eosinophils (%) (Auto) 5 % (0-3) Basophils (%) (Auto) 1 % (0-3) Neutrophils # (Auto) 3.4 x10^3/uL (1.8-7.7) Lymphocytes # (Auto) 1.4 x10^3/uL (1.0-4.8) Monocytes # (Auto) 0.7 x10^3/uL (0.0-1.1) Eosinophils # (Auto) 0.3 x10^3/uL (0.0-0.7) Basophils # (Auto) 0.1 x10^3/uL (0.0-0.2) Sodium Level 138 mmol/L (136-145) Potassium Level 4.0 mmol/L (3.5-5.1) Chloride Level 103 mmol/L (98-107) Carbon Dioxide Level 27 mmol/L (21-32) Anion Gap 8 (6-14) Blood Urea Nitrogen 17 mg/dL (8-26) Creatinine 1.5 mg/dL (0.7-1.3) Estimated GFR (Cockcroft-Gault) 57.8 Glucose Level 94 mg/dL (70-99) Calcium Level 9.2 mg/dL (8.5-10.1) Vitamin B12 Level 430 pg/mL (247-911) Laboratory Tests Test 04/29/20 04:20 White Blood Count 5.7 x10^3/uL (4.0-11.0) Red Blood Count 3.86 x10^6/uL (4.30-5.70) Hemoglobin 12.9 g/dL (13.0-17.5) Hematocrit 37.8 % (39.0-53.0) Mean Corpuscular Volume 98 fL (79-100) Mean Corpuscular Hemoglobin 33 pg (25-35) Mean Corpuscular Hemoglobin Concent 34 g/dL (31-37) Red Cell Distribution Width 15.9 % (11.5-14.5) Platelet Count 67 x10^3/uL (140-400) Neutrophils (%) (Auto) 58 % (31-73) Lymphocytes (%) (Auto) 24 % (24-48) Monocytes (%) (Auto) 12 % (0-9) Eosinophils (%) (Auto) 5 % (0-3) Basophils (%) (Auto) 1 % (0-3) Neutrophils # (Auto) 3.4 x10^3/uL (1.8-7.7) Lymphocytes # (Auto) 1.4 x10^3/uL (1.0-4.8) Monocytes # (Auto) 0.7 x10^3/uL (0.0-1.1) Eosinophils # (Auto) 0.3 x10^3/uL (0.0-0.7) Basophils # (Auto) 0.1 x10^3/uL (0.0-0.2) Sodium Level 138 mmol/L (136-145) Potassium Level 4.0 mmol/L (3.5-5.1) Chloride Level 103 mmol/L (98-107) Carbon Dioxide Level 27 mmol/L (21-32) Anion Gap 8 (6-14) Blood Urea Nitrogen 17 mg/dL (8-26) Creatinine 1.5 mg/dL (0.7-1.3) Estimated GFR (Cockcroft-Gault) 57.8 Glucose Level 94 mg/dL (70-99) Calcium Level 9.2 mg/dL (8.5-10.1) Vitamin B12 Level 430 pg/mL (247-911) Diagnosis: Diagnosis: Acute delirium, likely mixed, multifactorial Unspecified mood disorder 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 Presentation and symptomatology is consistent with delirium likely mixed type which could be multifactorial. He was stable on risperidone for years. Recommending to continue risperidone as is. Additionally recommending to start gabapentin due to his alcohol abuse which would help to prevent at complicated alcohol withdrawal and decreased number of drinks. Plan: Risperidone 1 mg twice daily for behavioral disturbances and delirium resolution. Gabapentin 300 mg 3 times a day for alcohol craving. Psychoeducation provided. Supportive psychotherapy provided. Brief insight oriented psychotherapy provided. Risks, benefits, alternatives of the treatment are discussed. He is in agreement with plan and voiced understanding Adverse drug reaction of the medications prescribed were also discussed. Thank you for involving inpatient care. MARGO BUTLER MD Apr 29, 2020 17:52
--- NOTE | 2020-04-29 18:18 | PDOC2 ---
CONSULT Date of Consult Date of Consult DATE: 04/29/20 TIME: 18:00 Reason for Consult Reason for Consult: Thrombocytopenia Referring Physician Referring Physician: Dr Ruiz Identification/Chief Complaint Problems: (1) Thrombocytopenia Source Source: Chart review, Patient History of Present Illness Reason for Visit: Moris Man is a 59 year old male who has been admitted after presenting with a suspected syncopal episode. His medical history is significant for hypertension, hyperlipidemia, coronary artery disease, alcoholism, cigarette smoker, ICM, CAD, and VT s/p AICD. He reports a syncopal episode last while sitting down and watching TV. He notes associated diaphoresis and dizziness without any chest pain or shortness of breath. He has been admitted for further evaluation and management. He smokes about a pack per day. He reports consuming 3 beers per daily, although chart review and discussion with Dr Ruiz indicates a more substantial history of alcohol abuse. He denies a prior hx of thrombocytopenia. Denies hematemesis/melena or hematochezia. He reported hand tremors that were of recent onset. He states that his last drink was "2-3 days ago". Past Medical History Cardiovascular: CAD, HTN, CO, Hyperlipidemia CENTRAL NERVOUS SYSTEM: Dementia (hypoxic encephalopathy) Psych: Addictions, Depression Past Surgical History Past Surgical History: Pacemaker (AICD), Other (right ankle fracture repair) Current Problem List Problem List Problems Medical Problems: (1) Syncope Status: Acute Current Medications Current Medications Current Medications Aspirin (Ecotrin) 325 mg DAILY PO Last administered on 04/29/20at 08:22; Start 04/28/20 at 09:00 Diphenhydramine HCl (Benadryl) 25 mg PRN Q4HRS PRN PO ALLERGIES Last administered on 04/28/20at 20:51; Start 04/27/20 at 20:00 Lisinopril (Prinivil) 10 mg DAILY PO Last administered on 04/29/20at 08:21; Start 04/28/20 at 09:00 Nitroglycerin (Nitrostat) 0.4 mg PRN Q5MIN PRN SL CHEST PAIN; Start 04/27/20 at 20:00 Potassium Chloride (Klor-Con) 10 meq BID PO Last administered on 04/28/20at 08:25; Start 04/27/20 at 21:00; Stop 04/28/20 at 10:56; Status DC Risperidone (RisperDAL) 1 mg BID PO Last administered on 04/29/20at 08:22; Start 04/27/20 at 21:00 Carvedilol (Coreg) 25 mg BIDWMEALS PO Last administered on 04/29/20at 17:20; Start 04/28/20 at 08:00 Multivitamins/ Minerals (I-Alex) 1 tab DAILY PO Last administered on 04/29/20at 08:20; Start 04/28/20 at 09:00 Atorvastatin Calcium (Lipitor) 80 mg QHS PO Last administered on 04/28/20at 20:51; Start 04/27/20 at 21:00 Thiamine Mononitrate (Vitamin B-1) 100 mg DAILY PO Last administered on 04/29/20at 08:20; Start 04/28/20 at 09:00; Stop 04/29/20 at 11:39; Status DC Lorazepam (Ativan) 0.5 mg PRN Q6HRS PRN PO ANXIETY / AGITATION Last administered on 04/28/20at 00:55; Start 04/27/20 at 20:00 Nicotine (Nicoderm Cq 7mg) 1 patch PRN DAILY PRN TD SMOKING CESSATION; Start 04/27/20 at 22:15; Stop 04/28/20 at 10:59; Status DC Potassium Chloride (Klor-Con) 10 meq DAILY PO Last administered on 04/29/20at 08:22; Start 04/29/20 at 09:00 Nicotine (Nicoderm Cq 21mg) 1 patch DAILY TD Last administered on 04/29/20at 08:20; Start 04/28/20 at 12:00 Lorazepam (Ativan Inj) 1 mg PRN Q6HRS PRN IVP ANXIETY / AGITATION; Start 04/28/20 at 18:00 Multivitamins 10 ml/Thiamine HCl 100 mg/Folic Acid 1 mg/Sodium Chloride 1,011.2 ml @ 100 mls/ hr DAILY IV ; Start 04/30/20 at 09:00; Stop 05/04/20 at 19:07 Thiamine HCl (Thiamine Im) 100 mg DAILY IM ; Start 04/30/20 at 09:00; Stop 05/04/20 at 09:01 Active Scripts Active Reported NITROGLYCERIN SubLingual (Nitroglycerin) 0.4 Mg Tab.subl 0.4 Mg SL PRN Q5MIN PRN Benadryl (Diphenhydramine Hcl) 25 Mg Capsule 25 Mg PO PRN Q4HRS PRN Centrum Silver Men Tablet (Multivit-Min/FA/Lycopen/Lutein) 1 Each Tablet 1 Each PO DAILY Aspirin Ec (Aspirin) 325 Mg Tablet.dr 325 Mg PO DAILY Crestor (Rosuvastatin Calcium) 40 Mg Tablet 40 Mg PO HS Risperidone 1 Mg Tablet 1 Mg PO BID Carvedilol 25 Mg Tablet 25 Mg PO BIDWMEALS Lisinopril 10 Mg Tablet 10 Mg PO DAILY Potassium Chloride (Potassium Chloride) 10 Meq Capsule.er 10 Meq PO BID Allergies Allergies: Coded Allergies: No Known Drug Allergies (Unverified , 02/12/16) ROS General: No: Chills, Fatigue PSYCHOLOGICAL ROS: No: Anxiety, Hallucinations, Hostility ENDOCRINE: No: Palpitations, Unexpected Weight Changes Respiratory: No: Cough, Hemoptysis Cardiovascular: No Chest Pain, No Palpitations Gastrointestinal: No Nausea, No Vomiting, No Diarrhea, No Constipation Genitourinary: No Dysuria, No Flank Pain Musculoskeletal: No Joint Pain Neurological: No Bowel/Bladder ControlChng, No Headaches Skin: No Dry Skin, No Rash Physical Exam General: Alert, Oriented X3 HEENT: Atraumatic, PERRLA Lungs: Clear to auscultation Heart: Regular rate, No murmurs Abdomen: Normal bowel sounds, Soft Extremities: No clubbing, No edema, Normal pulses Skin: No rashes Neuro: Normal gait, Normal speech Psych/Mental Status: Mental status NL MUSCULOSKELETAL: No swelling Vitals VITALS Vital Signs Date Time Temp Pulse Resp B/P (MAP) Pulse Ox O2 Delivery O2 Flow Rate FiO2 04/29/20 17:20 83 143/95 04/29/20 14:49 98.3 20 98 Room Air 98.3 Labs Labs Laboratory Tests Test 04/29/20 04:20 White Blood Count 5.7 x10^3/uL (4.0-11.0) Red Blood Count 3.86 x10^6/uL (4.30-5.70) Hemoglobin 12.9 g/dL (13.0-17.5) Hematocrit 37.8 % (39.0-53.0) Mean Corpuscular Volume 98 fL (79-100) Mean Corpuscular Hemoglobin 33 pg (25-35) Mean Corpuscular Hemoglobin Concent 34 g/dL (31-37) Red Cell Distribution Width 15.9 % (11.5-14.5) Platelet Count 67 x10^3/uL (140-400) Neutrophils (%) (Auto) 58 % (31-73) Lymphocytes (%) (Auto) 24 % (24-48) Monocytes (%) (Auto) 12 % (0-9) Eosinophils (%) (Auto) 5 % (0-3) Basophils (%) (Auto) 1 % (0-3) Neutrophils # (Auto) 3.4 x10^3/uL (1.8-7.7) Lymphocytes # (Auto) 1.4 x10^3/uL (1.0-4.8) Monocytes # (Auto) 0.7 x10^3/uL (0.0-1.1) Eosinophils # (Auto) 0.3 x10^3/uL (0.0-0.7) Basophils # (Auto) 0.1 x10^3/uL (0.0-0.2) Sodium Level 138 mmol/L (136-145) Potassium Level 4.0 mmol/L (3.5-5.1) Chloride Level 103 mmol/L (98-107) Carbon Dioxide Level 27 mmol/L (21-32) Anion Gap 8 (6-14) Blood Urea Nitrogen 17 mg/dL (8-26) Creatinine 1.5 mg/dL (0.7-1.3) Estimated GFR (Cockcroft-Gault) 57.8 Glucose Level 94 mg/dL (70-99) Calcium Level 9.2 mg/dL (8.5-10.1) Vitamin B12 Level 430 pg/mL (247-911) Laboratory Tests Test 04/29/20 04:20 White Blood Count 5.7 x10^3/uL (4.0-11.0) Red Blood Count 3.86 x10^6/uL (4.30-5.70) Hemoglobin 12.9 g/dL (13.0-17.5) Hematocrit 37.8 % (39.0-53.0) Mean Corpuscular Volume 98 fL (79-100) Mean Corpuscular Hemoglobin 33 pg (25-35) Mean Corpuscular Hemoglobin Concent 34 g/dL (31-37) Red Cell Distribution Width 15.9 % (11.5-14.5) Platelet Count 67 x10^3/uL (140-400) Neutrophils (%) (Auto) 58 % (31-73) Lymphocytes (%) (Auto) 24 % (24-48) Monocytes (%) (Auto) 12 % (0-9) Eosinophils (%) (Auto) 5 % (0-3) Basophils (%) (Auto) 1 % (0-3) Neutrophils # (Auto) 3.4 x10^3/uL (1.8-7.7) Lymphocytes # (Auto) 1.4 x10^3/uL (1.0-4.8) Monocytes # (Auto) 0.7 x10^3/uL (0.0-1.1) Eosinophils # (Auto) 0.3 x10^3/uL (0.0-0.7) Basophils # (Auto) 0.1 x10^3/uL (0.0-0.2) Sodium Level 138 mmol/L (136-145) Potassium Level 4.0 mmol/L (3.5-5.1) Chloride Level 103 mmol/L (98-107) Carbon Dioxide Level 27 mmol/L (21-32) Anion Gap 8 (6-14) Blood Urea Nitrogen 17 mg/dL (8-26) Creatinine 1.5 mg/dL (0.7-1.3) Estimated GFR (Cockcroft-Gault) 57.8 Glucose Level 94 mg/dL (70-99) Calcium Level 9.2 mg/dL (8.5-10.1) Vitamin B12 Level 430 pg/mL (247-911) Assessment/Plan Assessment/Plan Assessment: Thrombocytopenia Syncope Alcohol abuse Alcohol withdrawal CAD Ischemic CMP Remote hx of VT s/p AICD placement Recommendations: -I checked B12, and it returned normal. Would recommend evaluation of folate levels as outpatient -I suspect thrombocytopenia is secondary to alcohol use -I counseled the patient on alcohol cessation. He would benefit from further outpatient alcohol cessation support -Would not recommend any additional testing at this time. Ulysses Kelly Hematology-Oncology WILFRID KELLY MD Apr 29, 2020 18:18
[2020-04-29 19:00] VITALS: BP 143/85
[2020-04-29] MEDS: diphenhydrAMINE HCL 25 MG CAPSULE PO PRN (21:05)
[2020-04-29] MEDS: ATORVASTATIN CALCIUM 40 MG TABLET. PO SCH (21:06)
[2020-04-29] MEDS: LORazepam 0.5 MG TABLET PO PRN (21:08)
[2020-04-29 23:00] VITALS: BP 131/87
[2020-04-30] MEDS: LORazepam 0.5 MG TABLET PO PRN ×3 (03:53→17:21)
[2020-04-30 04:17] VITALS: BP 138/83
[2020-04-30] MEDS ORDERED: levETIRAcetam 500 MG in IV DEXTROSE 5% 100ML 100 ML IV SCH (04:35)
--- NOTE | 2020-04-30 06:08 | NUR ---
At 0400 patient bed alarm alarming ran to patient room and patient found on the ground in bathroom patient having seizure like activity and noted to be agonal breathing with a pulse. Code blue called. Rt bagged patient. Code blue canceled as pt breathing normal. resp 18. No bleeding, or hematoma noted on back of head. Patients tongue had some mild bleeding only injury noted. Patients VS BP 141/86 P 126 O2 97 post fall. Patient became responsive and alert to self but not able to answer questions. Patient assisted back to bed. Bed in low position and bed alarm on. Pts rails padded for seizure precautions. Contacted Dr. Ruiz. Order for head CT and contact Dr. Horvath received. Dr. Horvath called and orders received. [address] department regarding order. [address] 0600. VSS. Pt neurologically back to baseline. Will continue to monitor. 06 Patients daughter Joanne notified of fall.
--- NOTE | 2020-04-30 06:12 | RAD ---
INDICATION: Reason: fall/seizure / Spl. Instructions: / History: COMPARISON: April 27, 2020 TECHNIQUE: Axial CT images obtained through the head without intravenous contrast. One or more of the following individualized dose reduction techniques were utilized for this examination: 1. Automated exposure control; 2. Adjustment of the mA and/or kV according to patient size; 3. Use of iterative reconstruction technique. FINDINGS: No intracranial hemorrhage. No midline shift. Basal cisterns patents. Ventricles and sulci are globally prominent. No acute osseous abnormality. Fluid in maxillary sinuses. Scattered foci of low attenuation within the white matter. IMPRESSION: 1. No acute intracranial hemorrhage. 2. Scattered regions of low attenuation within the white matter. Non-specific in nature but frequently secondary to chronic small vessel ischemic disease. 3. Prominence of ventricles and sulci which is frequently secondary to age related volume loss. Electronically signed by: Adam Valles MD (04/30/2020 6:09 AM) [id number]
[2020-04-30 06:22] LABS: BASO # 0.1 x10^3/uL (0.0-0.2); BASO % 1 % (0-3); EOS # 0.3 x10^3/uL (0.0-0.7); EOS % 4 % (0-3); HEMATOCRIT 38.9 % (39.0-53.0); HEMOGLOBIN 12.8 g/dL (13.0-17.5); LYMPH # 2.2 x10^3/uL (1.0-4.8); LYMPH % 29 % (24-48); MEAN CORPUSCULAR HEMOGLOBIN 33 pg (25-35); MEAN CORPUSCULAR HGB CONC 33 g/dL (31-37); MEAN CORPUSCULAR VOLUME 99 fL (79-100); MONO % 13 % (0-9); NEUT # 4.1 x10^3/uL (1.8-7.7); NEUT % 54 % (31-73); PLATELET COUNT 65 x10^3/uL (140-400); RED BLOOD COUNT 3.94 x10^6/uL (4.30-5.70); RED CELL DISTRIBUTION WIDTH 15.4 % (11.5-14.5); WHITE BLOOD COUNT 7.6 x10^3/uL (4.0-11.0)
[2020-04-30 06:45] LABS: CALCIUM 9.5 mg/dL (8.5-10.1); CREATININE 1.7 mg/dL (0.7-1.3); MAGNESIUM 2.1 mg/dL (1.8-2.4); POTASSIUM 3.6 mmol/L (3.5-5.1)
[2020-04-30 07:00] VITALS: BP 123/77
[2020-04-30] MEDS: MULTIVIT INFUSN,ADULT 4,VIT K 10 ML, THIAMINE INJ 100 MG, FOLIC ACID INJ 1 MG in IV NOR... IV SCH (08:39)
[2020-04-30] MEDS: LISINOPRIL 10 MG TABLET PO SCH (08:40)
[2020-04-30] MEDS: MULTIVITAMIN I-VITE TABLET. PO SCH (08:40)
[2020-04-30] MEDS: POTASSIUM CHLORIDE 10 MEQ TABLET.ER. PO SCH (08:40)
[2020-04-30] MEDS: risperiDONE 1 MG TABLET. PO SCH ×2 (08:40→20:28)
[2020-04-30] MEDS: CARVEDILOL 12.5 MG TABLET. PO SCH ×2 (08:40→17:21)
[2020-04-30] MEDS: NICOTINE 21MG PATCH. TD SCH (08:40)
[2020-04-30] MEDS: ASPIRIN ENTERIC COATED 325 MG TABLET.DR. PO SCH (08:40)
[2020-04-30] MEDS: THIAMINE IM 200 MG/2 ML VIAL. IM SCH (08:41)
--- NOTE | 2020-04-30 10:04 | PDOC ---
PROGRESS NOTES Assessment Problems Medical Problems: (1) Syncope Status: Acute Alcoholic dementia, mild Syncope, did have a brief convulsion this morning, the syncope may be seizure- related. EEG was negative. Psychiatric issues following cardiac arrest Thrombocytopenia, hematology consulted Plan I have started levetiracetam, will switch it to by mouth Parenteral multivitamin and thiamine rather than oral Cardiac work-up Most likely needs residential, daughter is a nurse and may want to just take him home, though Subjective Denies pain Objective Vital Signs Date Time Temp Pulse Resp B/P (MAP) Pulse Ox O2 Delivery O2 Flow Rate FiO2 04/30/20 08:40 96 138/83 04/30/20 07:00 98.8 18 94 Room Air 98.8 Intake and Output 04/30/20 07:00 Intake Total 1380 ml Balance 1380 ml Intake Oral 1380 ml # Voids 5 PHYSICAL EXAM Alert. Oriented to person, does not know hospital name or date. PERRL. EOMI. CN: no focal findings. Muscle tone: normal. Muscle strength: 4/5 DTR: 2+ Plantar reflex: flexor Gait: not examined in bed. Sensory exam: no abnormal findings. No cerebellar signs elicited. Review of Relevant I have reviewed the following items kyara (where applicable) has been applied. Labs Laboratory Tests Test 04/29/20 04:20 04/30/20 04:40 White Blood Count 5.7 x10^3/uL (4.0-11.0) 7.6 x10^3/uL (4.0-11.0) Red Blood Count 3.86 x10^6/uL (4.30-5.70) 3.94 x10^6/uL (4.30-5.70) Hemoglobin 12.9 g/dL (13.0-17.5) 12.8 g/dL (13.0-17.5) Hematocrit 37.8 % (39.0-53.0) 38.9 % (39.0-53.0) Mean Corpuscular Volume 98 fL (79-100) 99 fL (79-100) Mean Corpuscular Hemoglobin 33 pg (25-35) 33 pg (25-35) Mean Corpuscular Hemoglobin Concent 34 g/dL (31-37) 33 g/dL (31-37) Red Cell Distribution Width 15.9 % (11.5-14.5) 15.4 % (11.5-14.5) Platelet Count 67 x10^3/uL (140-400) 65 x10^3/uL (140-400) Neutrophils (%) (Auto) 58 % (31-73) 54 % (31-73) Lymphocytes (%) (Auto) 24 % (24-48) 29 % (24-48) Monocytes (%) (Auto) 12 % (0-9) 13 % (0-9) Eosinophils (%) (Auto) 5 % (0-3) 4 % (0-3) Basophils (%) (Auto) 1 % (0-3) 1 % (0-3) Neutrophils # (Auto) 3.4 x10^3/uL (1.8-7.7) 4.1 x10^3/uL (1.8-7.7) Lymphocytes # (Auto) 1.4 x10^3/uL (1.0-4.8) 2.2 x10^3/uL (1.0-4.8) Monocytes # (Auto) 0.7 x10^3/uL (0.0-1.1) 1.0 x10^3/uL (0.0-1.1) Eosinophils # (Auto) 0.3 x10^3/uL (0.0-0.7) 0.3 x10^3/uL (0.0-0.7) Basophils # (Auto) 0.1 x10^3/uL (0.0-0.2) 0.1 x10^3/uL (0.0-0.2) Sodium Level 138 mmol/L (136-145) 139 mmol/L (136-145) Potassium Level 4.0 mmol/L (3.5-5.1) 3.6 mmol/L (3.5-5.1) Chloride Level 103 mmol/L (98-107) 101 mmol/L (98-107) Carbon Dioxide Level 27 mmol/L (21-32) 14 mmol/L (21-32) Anion Gap 8 (6-14) 24 (6-14) Blood Urea Nitrogen 17 mg/dL (8-26) 18 mg/dL (8-26) Creatinine 1.5 mg/dL (0.7-1.3) 1.7 mg/dL (0.7-1.3) Estimated GFR (Cockcroft-Gault) 57.8 50.0 Glucose Level 94 mg/dL (70-99) 155 mg/dL (70-99) Calcium Level 9.2 mg/dL (8.5-10.1) 9.5 mg/dL (8.5-10.1) Vitamin B12 Level 430 pg/mL (247-911) Magnesium Level 2.1 mg/dL (1.8-2.4) Laboratory Tests Test 04/30/20 04:40 White Blood Count 7.6 x10^3/uL (4.0-11.0) Red Blood Count 3.94 x10^6/uL (4.30-5.70) Hemoglobin 12.8 g/dL (13.0-17.5) Hematocrit 38.9 % (39.0-53.0) Mean Corpuscular Volume 99 fL (79-100) Mean Corpuscular Hemoglobin 33 pg (25-35) Mean Corpuscular Hemoglobin Concent 33 g/dL (31-37) Red Cell Distribution Width 15.4 % (11.5-14.5) Platelet Count 65 x10^3/uL (140-400) Neutrophils (%) (Auto) 54 % (31-73) Lymphocytes (%) (Auto) 29 % (24-48) Monocytes (%) (Auto) 13 % (0-9) Eosinophils (%) (Auto) 4 % (0-3) Basophils (%) (Auto) 1 % (0-3) Neutrophils # (Auto) 4.1 x10^3/uL (1.8-7.7) Lymphocytes # (Auto) 2.2 x10^3/uL (1.0-4.8) Monocytes # (Auto) 1.0 x10^3/uL (0.0-1.1) Eosinophils # (Auto) 0.3 x10^3/uL (0.0-0.7) Basophils # (Auto) 0.1 x10^3/uL (0.0-0.2) Sodium Level 139 mmol/L (136-145) Potassium Level 3.6 mmol/L (3.5-5.1) Chloride Level 101 mmol/L (98-107) Carbon Dioxide Level 14 mmol/L (21-32) Anion Gap 24 (6-14) Blood Urea Nitrogen 18 mg/dL (8-26) Creatinine 1.7 mg/dL (0.7-1.3) Estimated GFR (Cockcroft-Gault) 50.0 Glucose Level 155 mg/dL (70-99) Calcium Level 9.5 mg/dL (8.5-10.1) Magnesium Level 2.1 mg/dL (1.8-2.4) Medications Current Medications Aspirin (Ecotrin) 325 mg DAILY PO Last administered on 04/30/20 08:40; Start 04/28/20 at 09:00 Diphenhydramine HCl (Benadryl) 25 mg PRN Q4HRS PRN PO ALLERGIES Last administered on 04/29/20 21:05; Start 04/27/20 at 20:00 Lisinopril (Prinivil) 10 mg DAILY PO Last administered on 04/30/20 08:40; Start 04/28/20 at 09:00 Nitroglycerin (Nitrostat) 0.4 mg PRN Q5MIN PRN SL CHEST PAIN; Start 04/27/20 at 20:00 Potassium Chloride (Klor-Con) 10 meq BID PO Last administered on 04/28/20 08:25; Start 04/27/20 at 21:00; Stop 04/28/20 at 10:56; Status DC Risperidone (RisperDAL) 1 mg BID PO Last administered on 04/30/20 08:40; Start 04/27/20 at 21:00 Carvedilol (Coreg) 25 mg BIDWMEALS PO Last administered on 04/30/20 08:40; Start 04/28/20 at 08:00 Multivitamins/ Minerals (I-Alex) 1 tab DAILY PO Last administered on 04/30/20 08:40; Start 04/28/20 at 09:00 Atorvastatin Calcium (Lipitor) 80 mg QHS PO Last administered on 04/29/20at 21:06; Start 04/27/20 at 21:00 Thiamine Mononitrate (Vitamin B-1) 100 mg DAILY PO Last administered on 04/29/20 08:20; Start 04/28/20 at 09:00; Stop 04/29/20 at 11:39; Status DC Lorazepam (Ativan) 0.5 mg PRN Q6HRS PRN PO ANXIETY / AGITATION Last administered on 04/30/20at 03:53; Start 04/27/20 at 20:00 Nicotine (Nicoderm Cq 7mg) 1 patch PRN DAILY PRN TD SMOKING CESSATION; Start 04/27/20 at 22:15; Stop 04/28/20 at 10:59; Status DC Potassium Chloride (Klor-Con) 10 meq DAILY PO Last administered on 04/30/20at 08:40; Start 04/29/20 at 09:00 Nicotine (Nicoderm Cq 21mg) 1 patch DAILY TD Last administered on 04/30/20at 08:40; Start 04/28/20 at 12:00 Lorazepam (Ativan Inj) 1 mg PRN Q6HRS PRN IVP ANXIETY / AGITATION Last administered on 04/30/20at 04:49; Start 04/28/20 at 18:00 Multivitamins 10 ml/Thiamine HCl 100 mg/Folic Acid 1 mg/Sodium Chloride 1,011.2 ml @ 100 mls/ hr DAILY IV Last administered on 04/30/20at 08:39; Start 04/30/20 at 09:00; Stop 05/04/20 at 19:07 Thiamine HCl (Thiamine Im) 100 mg DAILY IM Last administered on 04/30/20at 08 :41; Start 04/30/20 at 09:00; Stop 05/04/20 at 09:01 Levetiracetam 500 mg/Dextrose 105 ml @ 420 mls/hr Q12HR IV Last administered on 04/30/20at 04:49; Start 04/30/20 at 04:35 Active Scripts Active Reported NITROGLYCERIN SubLingual (Nitroglycerin) 0.4 Mg Tab.subl 0.4 Mg SL PRN Q5MIN PRN Benadryl (Diphenhydramine Hcl) 25 Mg Capsule 25 Mg PO PRN Q4HRS PRN Centrum Silver Men Tablet (Multivit-Min/FA/Lycopen/Lutein) 1 Each Tablet 1 Each PO DAILY Aspirin Ec (Aspirin) 325 Mg Tablet.dr 325 Mg PO DAILY Crestor (Rosuvastatin Calcium) 40 Mg Tablet 40 Mg PO HS Risperidone 1 Mg Tablet 1 Mg PO BID Carvedilol 25 Mg Tablet 25 Mg PO BIDWMEALS Lisinopril 10 Mg Tablet 10 Mg PO DAILY Potassium Chloride (Potassium Chloride) 10 Meq Capsule.er 10 Meq PO BID Vitals/I & O Vital Sign - Last 24 Hours 04/29/20 04/29/20 04/29/20 04/29/20 10:44 14:49 17:20 19:00 Temp 97.9 98.3 98.2 97.9 98.3 98.2 Pulse 69 83 83 96 Resp B/P (MAP) 142/77 (98) 143/95 (111) 143/95 143/85 (104) Pulse Ox 98 98 100 O2 Delivery Room Air Room Air Room Air 04/29/20 04/29/20 04/30/20 04/30/20 20:00 23:00 04:17 07:00 Temp 98.2 98.0 98.8 98.2 98.0 98.8 Pulse 84 96 103 Resp 18 B/P (MAP) 131/87 (102) 138/83 (101) 123/77 (92) Pulse Ox 95 100 94 O2 Delivery Room Air Room Air Room Air Room Air 04/30/20 04/30/20 08:40 08:40 Pulse 96 96 B/P (MAP) 138/83 138/83 Intake and Output 04/29/20 04/29/20 04/30/20 15:00 23:00 07:00 Intake Total 480 ml 700 ml 200 ml Balance 480 ml 700 ml [address] HEAD WO CONTRAST, 04/30 FINDINGS: No intracranial hemorrhage. No midline shift. Basal cisterns patents. Ventricles and sulci are globally prominent. No acute osseous abnormality. Fluid in maxillary sinuses. Scattered foci of low attenuation within the white matter. IMPRESSION: 1. No acute intracranial hemorrhage. 2. Scattered regions of low attenuation within the white matter. Non-specific in nature but frequently secondary to chronic small vessel ischemic disease. 3. Prominence of ventricles and sulci which is frequently secondary to age related volume loss. Justicifation of Admission Dx: Justifications for Admission: Justification of Admission Dx: Yes RADHA CLARK MD Apr 30, 2020 10:04
--- NOTE | 2020-04-30 10:50 | PDOC ---
PROGRESS NOTES Date of Service DATE: 04/30/20 TIME: 10:45 Subjective Subjective had a seizure and started on iv and then po keppra per dr. luong EEG neg for seizure per nurse but cant find report. sleeping. discussed with family echo showed a preserved LVEF. no orthostasis. ICM interrogated without arrhythmia. lab reviewed. Objective Objective Vital Signs Date Time Temp Pulse Resp B/P (MAP) Pulse Ox O2 Delivery O2 Flow Rate FiO2 04/30/20 08:40 96 138/83 04/30/20 07:00 98.8 18 94 Room Air 98.8 Intake and Output 04/30/20 07:00 Intake Total 1380 ml Balance 1380 ml Intake Oral 1380 ml # Voids 5 Physical Exam Abdomen: Soft Heart: Regular rate, Normal S1, Normal S2 Extremities: No edema General: Other (sleping) HEENT: Atraumatic Lungs: Clear to auscultation Neck: Supple Neuro: Other (sleeping) Psych/Mental Status: Other (sleeping) Skin: No rashes Assessment Assessment Problems1. Recurrent syncope of undetermined etiology. 2. Coronary artery disease. 3. Hypertension. 4. Hyperlipidemia. 5. Alcoholism. 6. Cigarette smoker. 7. Alcohol hepatitis. 8. 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 9. 10. Chronic kidney disease stage 2. 11. Thrombocytopenia, suspect it is related to his alcoholism. altered mental status. suspect due to alcohol withdrawal suspect alcohol withdrawal seizure Medical Problems: (1) Syncope Status: Acute Plan Plan of Care continue keppra possible [facility] evaluation for alcohol use disorder continue other meds telemetry seizure precautions Comment Review of Relevant I have reviewed the following items kyara (where applicable) has been applied. Labs Laboratory Tests Test 04/29/20 04:20 04/30/20 04:40 White Blood Count 5.7 x10^3/uL (4.0-11.0) 7.6 x10^3/uL (4.0-11.0) Red Blood Count 3.86 x10^6/uL (4.30-5.70) 3.94 x10^6/uL (4.30-5.70) Hemoglobin 12.9 g/dL (13.0-17.5) 12.8 g/dL (13.0-17.5) Hematocrit 37.8 % (39.0-53.0) 38.9 % (39.0-53.0) Mean Corpuscular Volume 98 fL (79-100) 99 fL (79-100) Mean Corpuscular Hemoglobin 33 pg (25-35) 33 pg (25-35) Mean Corpuscular Hemoglobin Concent 34 g/dL (31-37) 33 g/dL (31-37) Red Cell Distribution Width 15.9 % (11.5-14.5) 15.4 % (11.5-14.5) Platelet Count 67 x10^3/uL (140-400) 65 x10^3/uL (140-400) Neutrophils (%) (Auto) 58 % (31-73) 54 % (31-73) Lymphocytes (%) (Auto) 24 % (24-48) 29 % (24-48) Monocytes (%) (Auto) 12 % (0-9) 13 % (0-9) Eosinophils (%) (Auto) 5 % (0-3) 4 % (0-3) Basophils (%) (Auto) 1 % (0-3) 1 % (0-3) Neutrophils # (Auto) 3.4 x10^3/uL (1.8-7.7) 4.1 x10^3/uL (1.8-7.7) Lymphocytes # (Auto) 1.4 x10^3/uL (1.0-4.8) 2.2 x10^3/uL (1.0-4.8) Monocytes # (Auto) 0.7 x10^3/uL (0.0-1.1) 1.0 x10^3/uL (0.0-1.1) Eosinophils # (Auto) 0.3 x10^3/uL (0.0-0.7) 0.3 x10^3/uL (0.0-0.7) Basophils # (Auto) 0.1 x10^3/uL (0.0-0.2) 0.1 x10^3/uL (0.0-0.2) Sodium Level 138 mmol/L (136-145) 139 mmol/L (136-145) Potassium Level 4.0 mmol/L (3.5-5.1) 3.6 mmol/L (3.5-5.1) Chloride Level 103 mmol/L (98-107) 101 mmol/L (98-107) Carbon Dioxide Level 27 mmol/L (21-32) 14 mmol/L (21-32) Anion Gap 8 (6-14) 24 (6-14) Blood Urea Nitrogen 17 mg/dL (8-26) 18 mg/dL (8-26) Creatinine 1.5 mg/dL (0.7-1.3) 1.7 mg/dL (0.7-1.3) Estimated GFR (Cockcroft-Gault) 57.8 50.0 Glucose Level 94 mg/dL (70-99) 155 mg/dL (70-99) Calcium Level 9.2 mg/dL (8.5-10.1) 9.5 mg/dL (8.5-10.1) Vitamin B12 Level 430 pg/mL (247-911) Magnesium Level 2.1 mg/dL (1.8-2.4) Laboratory Tests Test 04/30/20 04:40 White Blood Count 7.6 x10^3/uL (4.0-11.0) Red Blood Count 3.94 x10^6/uL (4.30-5.70) Hemoglobin 12.8 g/dL (13.0-17.5) Hematocrit 38.9 % (39.0-53.0) Mean Corpuscular Volume 99 fL (79-100) Mean Corpuscular Hemoglobin 33 pg (25-35) Mean Corpuscular Hemoglobin Concent 33 g/dL (31-37) Red Cell Distribution Width 15.4 % (11.5-14.5) Platelet Count 65 x10^3/uL (140-400) Neutrophils (%) (Auto) 54 % (31-73) Lymphocytes (%) (Auto) 29 % (24-48) Monocytes (%) (Auto) 13 % (0-9) Eosinophils (%) (Auto) 4 % (0-3) Basophils (%) (Auto) 1 % (0-3) Neutrophils # (Auto) 4.1 x10^3/uL (1.8-7.7) Lymphocytes # (Auto) 2.2 x10^3/uL (1.0-4.8) Monocytes # (Auto) 1.0 x10^3/uL (0.0-1.1) Eosinophils # (Auto) 0.3 x10^3/uL (0.0-0.7) Basophils # (Auto) 0.1 x10^3/uL (0.0-0.2) Sodium Level 139 mmol/L (136-145) Potassium Level 3.6 mmol/L (3.5-5.1) Chloride Level 101 mmol/L (98-107) Carbon Dioxide Level 14 mmol/L (21-32) Anion Gap 24 (6-14) Blood Urea Nitrogen 18 mg/dL (8-26) Creatinine 1.7 mg/dL (0.7-1.3) Estimated GFR (Cockcroft-Gault) 50.0 Glucose Level 155 mg/dL (70-99) Calcium Level 9.5 mg/dL (8.5-10.1) Magnesium Level 2.1 mg/dL (1.8-2.4) Medications Current Medications Aspirin (Ecotrin) 325 mg DAILY PO Last administered on 04/30/20 08:40; Start 04/28/20 at 09:00 Diphenhydramine HCl (Benadryl) 25 mg PRN Q4HRS PRN PO ALLERGIES Last administered on 04/29/20at 21:05; Start 04/27/20 at 20:00 Lisinopril (Prinivil) 10 mg DAILY PO Last administered on 04/30/20 08:40; Start 04/28/20 at 09:00 Nitroglycerin (Nitrostat) 0.4 mg PRN Q5MIN PRN SL CHEST PAIN; Start 04/27/20 at 20:00 Potassium Chloride (Klor-Con) 10 meq BID PO Last administered on 04/28/20at 08:25; Start 04/27/20 at 21:00; Stop 04/28/20 at 10:56; Status DC Risperidone (RisperDAL) 1 mg BID PO Last administered on 04/30/20 08:40; Start 04/27/20 at 21:00 Carvedilol (Coreg) 25 mg BIDWMEALS PO Last administered on 04/30/20 08:40; Start 04/28/20 at 08:00 Multivitamins/ Minerals (I-Alex) 1 tab DAILY PO Last administered on 04/30/20at 08:40; Start 04/28/20 at 09:00 Atorvastatin Calcium (Lipitor) 80 mg QHS PO Last administered on 04/29/20at 21:06; Start 04/27/20 at 21:00 Thiamine Mononitrate (Vitamin B-1) 100 mg DAILY PO Last administered on 04/29/20at 08:20; Start 04/28/20 at 09:00; Stop 04/29/20 at 11:39; Status DC Lorazepam (Ativan) 0.5 mg PRN Q6HRS PRN PO ANXIETY / AGITATION Last administered on 04/30/20at 10:02; Start 04/27/20 at 20:00 Nicotine (Nicoderm Cq 7mg) 1 patch PRN DAILY PRN TD SMOKING CESSATION; Start 04/27/20 at 22:15; Stop 04/28/20 at 10:59; Status DC Potassium Chloride (Klor-Con) 10 meq DAILY PO Last administered on 04/30/20at 08:40; Start 04/29/20 at 09:00 Nicotine (Nicoderm Cq 21mg) 1 patch DAILY TD Last administered on 04/30/20at 08:40; Start 04/28/20 at 12:00 Lorazepam (Ativan Inj) 1 mg PRN Q6HRS PRN IVP ANXIETY / AGITATION Last administered on 04/30/20at 04:49; Start 04/28/20 at 18:00 Multivitamins 10 ml/Thiamine HCl 100 mg/Folic Acid 1 mg/Sodium Chloride 1,011.2 ml @ 100 mls/ hr DAILY IV Last administered on 04/30/20at 08:39; Start 04/30/20 at 09:00; Stop 05/04/20 at 19:07 Thiamine HCl (Thiamine Im) 100 mg DAILY IM Last administered on 04/30/20at 0 8:41; Start 04/30/20 at 09:00; Stop 05/04/20 at 09:01 Levetiracetam 500 mg/Dextrose 105 ml @ 420 mls/hr Q12HR IV Last administered on 04/30/20at 04:49; Start 04/30/20 at 04:35; Stop 04/30/20 at 10:06; Status DC Levetiracetam (Keppra) 500 mg BID PO ; Start 04/30/20 at 21:00 Active Scripts Active Reported NITROGLYCERIN SubLingual (Nitroglycerin) 0.4 Mg Tab.subl 0.4 Mg SL PRN Q5MIN PRN Benadryl (Diphenhydramine Hcl) 25 Mg Capsule 25 Mg PO PRN Q4HRS PRN Centrum Silver Men Tablet (Multivit-Min/FA/Lycopen/Lutein) 1 Each Tablet 1 Each PO DAILY Aspirin Ec (Aspirin) 325 Mg Tablet.dr 325 Mg PO DAILY Crestor (Rosuvastatin Calcium) 40 Mg Tablet 40 Mg PO HS Risperidone 1 Mg Tablet 1 Mg PO BID Carvedilol 25 Mg Tablet 25 Mg PO BIDWMEALS Lisinopril 10 Mg Tablet 10 Mg PO DAILY Potassium Chloride (Potassium Chloride) 10 Meq Capsule.er 10 Meq PO BID Vitals/I & O Vital Sign - Last 24 Hours 04/29/20 04/29/20 04/29/20 04/29/20 14:49 17:20 19:00 20:00 Temp 98.3 98.2 98.3 98.2 Pulse 83 83 96 Resp B/P (MAP) 143/95 (111) 143/95 143/85 (104) Pulse Ox 98 100 O2 Delivery Room Air Room Air Room Air 04/29/20 04/30/20 04/30/20 04/30/20 23:00 04:17 07:00 08:40 Temp 98.2 98.0 98.8 98.2 98.0 98.8 Pulse 84 96 103 96 Resp 20 18 B/P (MAP) 131/87 (102) 138/83 (101) 123/77 (92) 138/83 Pulse Ox 95 100 94 O2 Delivery Room Air Room Air Room Air 04/30/20 08:40 Pulse 96 B/P (MAP) 138/83 Intake and Output 04/29/20 04/29/20 04/30/20 15:00 23:00 07:00 Intake Total 480 ml 700 ml 200 ml Balance 480 ml 700 ml 200 ml Justicifation of Admission Dx: Justifications for Admission: Justification of Admission Dx: Yes CONNOR LEBLANC MD Apr 30, 2020 10:50
[2020-04-30 11:00] VITALS: BP 114/73
--- NOTE | 2020-04-30 14:16 | NUR ---
SS following up with discharge planning. SS reviewed pt chart and discussed with pt RN. Pt is currently on room air. PT recommended senior living unit. SS met with pt to discuss discharge planning and senior living unit and pt declined senior living unit. Pt agreeable to home with home healthcare with no preference of company. Pt agreeable to [facility], ; fax [phone]. Referral phoned and faxed to [facility]. PAT team referral made for ETOH. Jonathon from PAT team met with pt and family and provided resources and referrals for outpatient services. SS will continue to follow for discharge planning.
[2020-04-30 15:00] VITALS: BP 107/75
--- NOTE | 2020-04-30 16:53 | PDOC ---
CARDIO Progress Notes Date and Time Date of Service 04/30/2020 Time of Evaluation 1430 Subjective Subjective: No Chest Pain, No shortness of breath, No Palpitations Vitals Vitals Vital Signs Date Time Temp Pulse Resp B/P (MAP) Pulse Ox O2 Delivery O2 Flow Rate FiO2 04/30/20 11:00 98.6 95 18 114/73 (87) 95 Room Air 98.6 Weight Weight [ ] Input and Output Intake and Output Intake and Output 04/30/20 07:00 Intake Total 1380 ml Balance 1380 ml Intake Oral 1380 ml # Voids 5 Laboratory Labs Laboratory Tests Test 04/30/20 04:40 White Blood Count 7.6 x10^3/uL (4.0-11.0) Red Blood Count 3.94 x10^6/uL (4.30-5.70) Hemoglobin 12.8 g/dL (13.0-17.5) Hematocrit 38.9 % (39.0-53.0) Mean Corpuscular Volume 99 fL (79-100) Mean Corpuscular Hemoglobin 33 pg (25-35) Mean Corpuscular Hemoglobin Concent 33 g/dL (31-37) Red Cell Distribution Width 15.4 % (11.5-14.5) Platelet Count 65 x10^3/uL (140-400) Neutrophils (%) (Auto) 54 % (31-73) Lymphocytes (%) (Auto) 29 % (24-48) Monocytes (%) (Auto) 13 % (0-9) Eosinophils (%) (Auto) 4 % (0-3) Basophils (%) (Auto) 1 % (0-3) Neutrophils # (Auto) 4.1 x10^3/uL (1.8-7.7) Lymphocytes # (Auto) 2.2 x10^3/uL (1.0-4.8) Monocytes # (Auto) 1.0 x10^3/uL (0.0-1.1) Eosinophils # (Auto) 0.3 x10^3/uL (0.0-0.7) Basophils # (Auto) 0.1 x10^3/uL (0.0-0.2) Sodium Level 139 mmol/L (136-145) Potassium Level 3.6 mmol/L (3.5-5.1) Chloride Level 101 mmol/L (98-107) Carbon Dioxide Level 14 mmol/L (21-32) Anion Gap 24 (6-14) Blood Urea Nitrogen 18 mg/dL (8-26) Creatinine 1.7 mg/dL (0.7-1.3) Estimated GFR (Cockcroft-Gault) 50.0 Glucose Level 155 mg/dL (70-99) Calcium Level 9.5 mg/dL (8.5-10.1) Magnesium Level 2.1 mg/dL (1.8-2.4) Physical Exam HEENT: Neck Supple W Full Motion Chest: Symmetric LUNGS: Clear to Auscultation Heart: S1S2, RRR (SR) Abdomen: Soft N/T Neurology: alert, oriented, follow commands Assessment Assessment 1. Syncope: possibly from ETOH induced seizure which he had last noc 2 . CAD: with MACHINE CAPTAIN of the RCA, CP free, clinically stable. 3. ICM; s/p AICD. Most recent echo shows LV recovery with EF 55% 4. Hypertension; controlled 5. Dyslipidemia; Lipids on goal 6. CKD3? 7. H/o VT, cardiac arrest. No NSVT episodes so far 8. JANINE 9. Tobacco and alcohol abuse. Discussed cessation heavy etoh with maykel walker 10. Encephalopathy: postictal? Recommendations 1. Will contact device rep in regards to interrogation report 2. Continue secondary prevention 3. Possibly need detox. Recommend SNU but pt is hesitant. 4. Alcohol cessation Justicifation of Admission Dx: Justifications for Admission: Justification of Admission Dx: Yes MYLES ESCOBEDO PERSON[employer] LOAN SPECIALIST Apr 30, 2020 16:53
--- NOTE | 2020-04-30 17:31 | PDOC ---
F/U PHYSCH PROG NOTE Subjective: -[place] gentleman seen for routine follow-up. Progress is reviewed with nursing staff. Reportedly patient had seizure, tonic-clonic, solitary. Likely, alcohol withdrawal seizure as he is a heavy alcohol user. When seen he appears more confused and worse than yesterday. Ruminating that he has to go home at 11 PM and trying to stop infusion machine to get ready for discharge. Denies suicidal or homicidal thoughts. Denies auditory or visual hallucinations. Objective: 14 point review of system is otherwise negative except for stated above. Vital Signs: Vital Signs Date Time Temp Pulse Resp B/P (MAP) Pulse Ox O2 Delivery O2 Flow Rate FiO2 04/30/20 17:21 96 107/75 04/30/20 15:00 97.5 18 100 Room Air 97.5 Labs: Laboratory Tests Test 04/30/20 04:40 White Blood Count 7.6 x10^3/uL (4.0-11.0) Red Blood Count 3.94 x10^6/uL (4.30-5.70) L Hemoglobin 12.8 g/dL (13.0-17.5) L Hematocrit 38.9 % (39.0-53.0) L Mean Corpuscular Volume 99 fL (79-100) Mean Corpuscular Hemoglobin 33 pg (25-35) Mean Corpuscular Hemoglobin Concent 33 g/dL (31-37) Red Cell Distribution Width 15.4 % (11.5-14.5) H Platelet Count 65 x10^3/uL (140-400) L Neutrophils (%) (Auto) 54 % (31-73) Lymphocytes (%) (Auto) 29 % (24-48) Monocytes (%) (Auto) 13 % (0-9) H Eosinophils (%) (Auto) 4 % (0-3) H Basophils (%) (Auto) 1 % (0-3) Neutrophils # (Auto) 4.1 x10^3/uL (1.8-7.7) Lymphocytes # (Auto) 2.2 x10^3/uL (1.0-4.8) Monocytes # (Auto) 1.0 x10^3/uL (0.0-1.1) Eosinophils # (Auto) 0.3 x10^3/uL (0.0-0.7) Basophils # (Auto) 0.1 x10^3/uL (0.0-0.2) Sodium Level 139 mmol/L (136-145) Potassium Level 3.6 mmol/L (3.5-5.1) Chloride Level 101 mmol/L (98-107) Carbon Dioxide Level 14 mmol/L (21-32) L Anion Gap 24 (6-14) H Blood Urea Nitrogen 18 mg/dL (8-26) Creatinine 1.7 mg/dL (0.7-1.3) H Estimated GFR (Cockcroft-Gault) 50.0 Glucose Level 155 mg/dL (70-99) H Calcium Level 9.5 mg/dL (8.5-10.1) Magnesium Level 2.1 mg/dL (1.8-2.4) Laboratory Tests 04/30/20 04:40 Laboratory Tests 04/30/20 04:40 Medications: Current Medications Medications (Trade) Dose Ordered Sig/Niki Start Time Stop Time Status Last Admin Dose Admin Aspirin (Ecotrin) 325 mg DAILY 04/28/20 09:00 04/30/20 08:40 325 MG Atorvastatin Calcium (Lipitor) 80 mg QHS 04/27/20 21:00 04/29/20 21:06 80 MG Carvedilol (Coreg) 25 mg BIDWMEALS 04/28/20 08:00 04/30/20 17:21 25 MG Diphenhydramine HCl (Benadryl) 25 mg PRN Q4HRS PRN 04/27/20 20:00 04/29/20 21:05 25 MG Levetiracetam (Keppra) 500 mg BID 04/30/20 21:00 Levetiracetam 500 mg/Dextrose 105 ml @ 420 mls/hr Q12HR 04/30/20 04:35 04/30/20 10:06 DC 04/30/20 04:49 420 MLS/HR Lisinopril (Prinivil) 10 mg DAILY 04/28/20 09:00 04/30/20 08:40 10 MG Lorazepam (Ativan Inj) 1 mg PRN Q6HRS PRN 04/28/20 18:00 04/30/20 04:49 1 MG Lorazepam (Ativan) 0.5 mg PRN Q6HRS PRN 04/27/20 20:00 04/30/20 17:21 0.5 MG Multivitamins 10 ml/Thiamine HCl 100 mg/Folic Acid 1 mg/Sodium Chloride 1,011.2 ml @ 100 mls/ hr DAILY 04/30/20 09:00 05/04/20 19:07 04/30/20 08:39 100 MLS/HR Multivitamins/ Minerals (I-Alex) 1 tab DAILY 05/05/20 09:00 Nicotine (Nicoderm Cq 21mg) 1 patch DAILY 04/28/20 12:00 04/30/20 08:40 1 PATCH Nicotine (Nicoderm Cq 7mg) 1 patch PRN DAILY PRN 04/27/20 22:15 04/28/20 10:59 DC Nitroglycerin (Nitrostat) 0.4 mg PRN Q5MIN PRN 04/27/20 20:00 Potassium Chloride (Klor-Con) 20 meq DAILY 05/01/20 09:00 Risperidone (RisperDAL) 1 mg BID 04/27/20 21:00 04/30/20 08:40 1 MG Thiamine Mononitrate (Vitamin B-1) 100 mg DAILY 04/28/20 09:00 04/29/20 11:39 DC 04/29/20 08:20 100 MG Thiamine HCl (Thiamine Im) 100 mg DAILY 04/30/20 09:00 05/04/20 09:01 04/30/20 08:41 100 MG Physical Exam: Mental Status Exam: -[place] gentleman appears as a stated age Cooperative Thought processes rambling Denies suicidal or homicidal thoughts. Denies auditory or visual hallucinations No abnormal perception. Mood is depressed and anxious Affect is dysthymic Insight is fair Judgment is fair Impulse control is fair Recent and remote memory impaired Physical Exam: Refer to Physician's note. 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 Presentation and symptomatology is consistent with delirium likely mixed type which could be multifactorial. He was stable on risperidone for years. Recommending to continue risperidone as is. Additionally recommending to start gabapentin due to his alcohol abuse which would help to prevent at complicated alcohol withdrawal and decreased number of drinks. 04/30/2020: Today, he appears a lot more confused with altered mental status. Since he is a heavy alcohol user, seizures could be withdrawal seizures as he got cold turkey. Plan: Risperidone 1 mg twice daily for behavioral disturbances and delirium resolution. Increase gabapentin to 600 mg 3 times a day for alcohol craving. Psychoeducation provided. Supportive psychotherapy provided. Brief insight oriented psychotherapy provided. Risks, benefits, alternatives of the treatment are discussed. He is in agreement with plan and voiced understanding Adverse drug reaction of the medications prescribed were also discussed. Thank you for involving inpatient care. MARGO BUTLER MD Apr 30, 2020 17:31
[2020-04-30 19:01] VITALS: BP 116/75
[2020-04-30] MEDS: GABAPENTIN 300 MG CAPSULE. PO SCH (20:28)
[2020-04-30] MEDS: levETIRAcetam 500 MG TABLET PO SCH (20:28)
[2020-04-30] MEDS: ATORVASTATIN CALCIUM 40 MG TABLET. PO SCH (20:28)
[2020-04-30] MEDS: diphenhydrAMINE HCL 25 MG CAPSULE PO PRN (20:28)
[2020-04-30 22:35] VITALS: BP 135/73
[2020-05-01 03:10] VITALS: BP 173/111
[2020-05-01 07:00] VITALS: BP 132/64
[2020-05-01] MEDS: risperiDONE 1 MG TABLET. PO SCH (08:55)
[2020-05-01] MEDS: NICOTINE 21MG PATCH. TD SCH (08:55)
[2020-05-01] MEDS: CARVEDILOL 12.5 MG TABLET. PO SCH (08:56)
[2020-05-01] MEDS: ASPIRIN ENTERIC COATED 325 MG TABLET.DR. PO SCH (08:56)
[2020-05-01] MEDS: LISINOPRIL 10 MG TABLET PO SCH (08:56)
[2020-05-01] MEDS: GABAPENTIN 300 MG CAPSULE. PO SCH (08:56)
[2020-05-01] MEDS: levETIRAcetam 500 MG TABLET PO SCH (08:57)
[2020-05-01] MEDS: THIAMINE IM 200 MG/2 ML VIAL. IM SCH (08:58)
[2020-05-01] MEDS: diphenhydrAMINE HCL 25 MG CAPSULE PO PRN (08:59)
[2020-05-01] MEDS ORDERED: POTASSIUM CHLORIDE 10 MEQ TABLET.ER. PO SCH (09:00)
--- NOTE | 2020-05-01 09:40 | PDOC ---
PROGRESS NOTES Assessment Problems Medical Problems: (1) Syncope Status: Acute Alcoholic dementia, mild Syncope, Alcohol-related seizure. EEG was negative. Psychiatric issues following cardiac arrest Thrombocytopenia, hematology consulted Plan Levetiracetam Multivitamin and thiamin Abstain from alcohol Patient refuses [facility] or alcohol rehab, okay for discharge Follow-up with me in 2 months Subjective None Objective Vital Signs Date Time Temp Pulse Resp B/P (MAP) Pulse Ox O2 Delivery O2 Flow Rate FiO2 05/01/20 08:56 99 173/111 05/01/20 03:10 97.6 16 97 Room Air 97.6 Intake and Output 05/01/20 07:00 Intake Total 1925 ml Output Total 400 ml Balance 1525 ml Intake Oral 1100 ml IV Total 825 ml Output Urine Total 400 ml # Voids 4 PHYSICAL EXAM Alert. Oriented to person, does not know hospital name or date. PERRL. EOMI. CN: no focal findings. Muscle tone: normal. Muscle strength: 4/5 DTR: 2+ Plantar reflex: flexor Gait: not examined in bed. Sensory exam: no abnormal findings. No cerebellar signs elicited. Review of Relevant I have reviewed the following items kyara (where applicable) has been applied. Labs Laboratory Tests Test 04/30/20 04:40 White Blood Count 7.6 x10^3/uL (4.0-11.0) Red Blood Count 3.94 x10^6/uL (4.30-5.70) Hemoglobin 12.8 g/dL (13.0-17.5) Hematocrit 38.9 % (39.0-53.0) Mean Corpuscular Volume 99 fL (79-100) Mean Corpuscular Hemoglobin 33 pg (25-35) Mean Corpuscular Hemoglobin Concent 33 g/dL (31-37) Red Cell Distribution Width 15.4 % (11.5-14.5) Platelet Count 65 x10^3/uL (140-400) Neutrophils (%) (Auto) 54 % (31-73) Lymphocytes (%) (Auto) 29 % (24-48) Monocytes (%) (Auto) 13 % (0-9) Eosinophils (%) (Auto) 4 % (0-3) Basophils (%) (Auto) 1 % (0-3) Neutrophils # (Auto) 4.1 x10^3/uL (1.8-7.7) Lymphocytes # (Auto) 2.2 x10^3/uL (1.0-4.8) Monocytes # (Auto) 1.0 x10^3/uL (0.0-1.1) Eosinophils # (Auto) 0.3 x10^3/uL (0.0-0.7) Basophils # (Auto) 0.1 x10^3/uL (0.0-0.2) Sodium Level 139 mmol/L (136-145) Potassium Level 3.6 mmol/L (3.5-5.1) Chloride Level 101 mmol/L (98-107) Carbon Dioxide Level 14 mmol/L (21-32) Anion Gap 24 (6-14) Blood Urea Nitrogen 18 mg/dL (8-26) Creatinine 1.7 mg/dL (0.7-1.3) Estimated GFR (Cockcroft-Gault) 50.0 Glucose Level 155 mg/dL (70-99) Calcium Level 9.5 mg/dL (8.5-10.1) Magnesium Level 2.1 mg/dL (1.8-2.4) Medications Current Medications Aspirin (Ecotrin) 325 mg DAILY PO Last administered on 05/01/20 08:56; Start 04/28/20 at 09:00 Diphenhydramine HCl (Benadryl) 25 mg PRN Q4HRS PRN PO ALLERGIES Last administered on 05/01/20 08:59; Start 04/27/20 at 20:00 Lisinopril (Prinivil) 10 mg DAILY PO Last administered on 05/01/20 08:56; Start 04/28/20 at 09:00 Nitroglycerin (Nitrostat) 0.4 mg PRN Q5MIN PRN SL CHEST PAIN; Start 04/27/20 at 20:00 Potassium Chloride (Klor-Con) 10 meq BID PO Last administered on 04/28/20 08:25; Start 04/27/20 at 21:00; Stop 04/28/20 at 10:56; Status DC Risperidone (RisperDAL) 1 mg BID PO Last administered on 05/01/20 08:55; Start 04/27/20 at 21:00 Carvedilol (Coreg) 25 mg BIDWMEALS PO Last administered on 8/19/20at 08:56; Start 04/28/20 at 08:00 Multivitamins/ Minerals (I-Alex) 1 tab DAILY PO Last administered on 04/30/20at 08:40; Start 04/28/20 at 09:00; Stop 04/30/20 at 11:14; Status DC Atorvastatin Calcium (Lipitor) 80 mg QHS PO Last administered on 04/30/20at 20:28; Start 04/27/20 at 21:00 Thiamine Mononitrate (Vitamin B-1) 100 mg DAILY PO Last administered on 04/29/20at 08:20; Start 04/28/20 at 09:00; Stop 04/29/20 at 11:39; Status DC Lorazepam (Ativan) 0.5 mg PRN Q6HRS PRN PO ANXIETY / AGITATION Last administered on 04/30/20at 17:21; Start 04/27/20 at 20:00 Nicotine (Nicoderm Cq 7mg) 1 patch PRN DAILY PRN TD SMOKING CESSATION; Start 04/27/20 at 22:15; Stop 04/28/20 at 10:59; Status DC Potassium Chloride (Klor-Con) 10 meq DAILY PO Last administered on 04/30/20at 08:40; Start 04/29/20 at 09:00; Stop 04/30/20 at 10:55; Status DC Nicotine (Nicoderm Cq 21mg) 1 patch DAILY TD Last administered on 05/01/20at 08:55; Start 04/28/20 at 12:00 Lorazepam (Ativan Inj) 1 mg PRN Q6HRS PRN IVP ANXIETY / AGITATION Last administered on 04/30/20at 22:31; Start 04/28/20 at 18:00 Multivitamins 10 ml/Thiamine HCl 100 mg/Folic Acid 1 mg/Sodium Chloride 1,011.2 ml @ 100 mls/ hr DAILY IV Last administered on 04/30/20at 08:39; Start 04/30/20 at 09:00; Stop 05/04/20 at 19:07 Thiamine HCl (Thiamine Im) 100 mg DAILY IM Last administered on 05/01/20at 08:58; Start 04/30/20 at 09:00; Stop 05/04/20 at 09:01 Levetiracetam 500 mg/Dextrose 105 ml @ 420 mls/hr Q12HR IV Last administered on 04/30/20at 04:49; Start 04/30/20 at 04:35; Stop 04/30/20 at 10:06; Status DC Levetiracetam (Keppra) 500 mg BID PO Last administered on 05/01/20at 08:57; Start 04/30/20 at 21:00 Potassium Chloride (Klor-Con) 20 meq DAILY PO Last administered on 05/01/20at 08:56; Start 05/01/20 at 09:00 Multivitamins/ Minerals (I-Alex) 1 tab DAILY PO ; Start 05/05/20 at 09:00 Gabapentin (Neurontin) 300 mg TID PO Last administered on 05/01/20at 08:56; Start 04/30/20 at 21:00 Active Scripts Active Reported NITROGLYCERIN SubLingual (Nitroglycerin) 0.4 Mg Tab.subl 0.4 Mg SL PRN Q5MIN PRN Benadryl (Diphenhydramine Hcl) 25 Mg Capsule 25 Mg PO PRN Q4HRS PRN Centrum Silver Men Tablet (Multivit-Min/FA/Lycopen/Lutein) 1 Each Tablet 1 Each PO DAILY Aspirin Ec (Aspirin) 325 Mg Tablet.dr 325 Mg PO DAILY Crestor (Rosuvastatin Calcium) 40 Mg Tablet 40 Mg PO HS Risperidone 1 Mg Tablet 1 Mg PO BID Carvedilol 25 Mg Tablet 25 Mg PO BIDWMEALS Lisinopril 10 Mg Tablet 10 Mg PO DAILY Potassium Chloride (Potassium Chloride) 10 Meq Capsule.er 10 Meq PO BID Vitals/I & O Vital Sign - Last 24 Hours 04/30/20 04/30/20 04/30/20 04/30/20 11:00 15:00 17:21 19:01 Temp 98.6 97.5 98.1 98.6 97.5 98.1 Pulse 95 96 96 91 Resp 18 18 20 B/P (MAP) 114/73 (87) 107/75 (86) 107/75 116/75 (89) Pulse Ox 95 100 98 O2 Delivery Room Air Room Air Room Air 04/30/20 04/30/20 05/01/20 05/01/20 19:45 22:35 03:10 08:56 Temp 99.1 97.6 99.1 97.6 Pulse 87 99 99 Resp 22 16 B/P (MAP) 135/73 (93) 173/111 (131) 173/111 Pulse Ox 97 97 O2 Delivery Room Air Room Air Room Air 05/01/20 08:56 Pulse 99 B/P (MAP) 173/111 Intake and Output 04/30/20 04/30/20 05/01/20 15:00 23:00 07:00 Intake Total 200 ml 1625 ml 100 ml Output Total 0 ml 400 ml Balance 200 ml 1625 ml -300 ml Justicifation of Admission Dx: Justifications for Admission: Justification of Admission Dx: Yes RADHA CLARK MD May 01, 2020 09:40
[2020-05-01] MEDS: MULTIVIT INFUSN,ADULT 4,VIT K 10 ML, THIAMINE INJ 100 MG, FOLIC ACID INJ 1 MG in IV NOR... IV SCH (09:56)
--- NOTE | 2020-05-01 10:10 | PDOC ---
PROGRESS NOTES Date of Service DATE: 05/01/20 TIME: 10:09 Subjective Subjective declines snf but concurs with home health and home PT. discussed need to stop drinking alcohol and smoking. bp is okay. no further seizures Objective Objective Vital Signs Date Time Temp Pulse Resp B/P (MAP) Pulse Ox O2 Delivery O2 Flow Rate FiO2 05/01/20 08:56 99 173/111 05/01/20 07:00 98.1 20 98 Room Air 98.1 Intake and Output 05/01/20 07:00 Intake Total 1925 ml Output Total 400 ml Balance 1525 ml Intake Oral 1100 ml IV Total 825 ml Output Urine Total 400 ml # Voids 4 Physical Exam Abdomen: Soft Heart: Regular rate, Normal S1, Normal S2 Extremities: No edema General: Alert HEENT: Atraumatic Lungs: Clear to auscultation Neuro: Normal speech Psych/Mental Status: Mood NL Skin: No rashes Assessment Assessment Problems1. Recurrent syncope of undetermined etiology. 2. Coronary artery disease. 3. Hypertension. 4. Hyperlipidemia. 5. Alcoholism. 6. Cigarette smoker. 7. Alcohol hepatitis. 8. 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 9. 10. Chronic kidney disease stage 2. 11. Thrombocytopenia, suspect it is related to his alcoholism. altered mental status. suspect due to alcohol withdrawal suspect alcohol withdrawal seizure Medical Problems: (1) Syncope Status: Acute Plan Plan of Care dismiss today with home health Comment Review of Relevant I have reviewed the following items kyara (where applicable) has been applied. Labs Laboratory Tests Test 04/30/20 04:40 White Blood Count 7.6 x10^3/uL (4.0-11.0) Red Blood Count 3.94 x10^6/uL (4.30-5.70) Hemoglobin 12.8 g/dL (13.0-17.5) Hematocrit 38.9 % (39.0-53.0) Mean Corpuscular Volume 99 fL (79-100) Mean Corpuscular Hemoglobin 33 pg (25-35) Mean Corpuscular Hemoglobin Concent 33 g/dL (31-37) Red Cell Distribution Width 15.4 % (11.5-14.5) Platelet Count 65 x10^3/uL (140-400) Neutrophils (%) (Auto) 54 % (31-73) Lymphocytes (%) (Auto) 29 % (24-48) Monocytes (%) (Auto) 13 % (0-9) Eosinophils (%) (Auto) 4 % (0-3) Basophils (%) (Auto) 1 % (0-3) Neutrophils # (Auto) 4.1 x10^3/uL (1.8-7.7) Lymphocytes # (Auto) 2.2 x10^3/uL (1.0-4.8) Monocytes # (Auto) 1.0 x10^3/uL (0.0-1.1) Eosinophils # (Auto) 0.3 x10^3/uL (0.0-0.7) Basophils # (Auto) 0.1 x10^3/uL (0.0-0.2) Sodium Level 139 mmol/L (136-145) Potassium Level 3.6 mmol/L (3.5-5.1) Chloride Level 101 mmol/L (98-107) Carbon Dioxide Level 14 mmol/L (21-32) Anion Gap 24 (6-14) Blood Urea Nitrogen 18 mg/dL (8-26) Creatinine 1.7 mg/dL (0.7-1.3) Estimated GFR (Cockcroft-Gault) 50.0 Glucose Level 155 mg/dL (70-99) Calcium Level 9.5 mg/dL (8.5-10.1) Magnesium Level 2.1 mg/dL (1.8-2.4) Medications Current Medications Aspirin (Ecotrin) 325 mg DAILY PO Last administered on 05/01/20at 08:56; Start 04/28/20 at 09:00 Diphenhydramine HCl (Benadryl) 25 mg PRN Q4HRS PRN PO ALLERGIES Last admini stered on 05/01/20at 08:59; Start 04/27/20 at 20:00 Lisinopril (Prinivil) 10 mg DAILY PO Last administered on 05/01/20at 08:56; Start 04/28/20 at 09:00 Nitroglycerin (Nitrostat) 0.4 mg PRN Q5MIN PRN SL CHEST PAIN; Start 04/27/20 at 20:00 Potassium Chloride (Klor-Con) 10 meq BID PO Last administered on 04/28/20at 08:25; Start 04/27/20 at 21:00; Stop 04/28/20 at 10:56; Status DC Risperidone (RisperDAL) 1 mg BID PO Last administered on 05/01/20at 08:55; Start 04/27/20 at 21:00 Carvedilol (Coreg) 25 mg BIDWMEALS PO Last administered on 05/01/20at 08:56; Start 04/28/20 at 08:00 Multivitamins/ Minerals (I-Alex) 1 tab DAILY PO Last administered on 04/30/20at 08:40; Start 04/28/20 at 09:00; Stop 04/30/20 at 11:14; Status DC Atorvastatin Calcium (Lipitor) 80 mg QHS PO Last administered on 04/30/20at 20:28; Start 04/27/20 at 21:00 Thiamine Mononitrate (Vitamin B-1) 100 mg DAILY PO Last administered on 04/29/20at 08:20; Start 04/28/20 at 09:00; Stop 04/29/20 at 11:39; Status DC Lorazepam (Ativan) 0.5 mg PRN Q6HRS PRN PO ANXIETY / AGITATION Last administered on 04/30/20at 17:21; Start 04/27/20 at 20:00 Nicotine (Nicoderm Cq 7mg) 1 patch PRN DAILY PRN TD SMOKING CESSATION; Start 04/27/20 at 22:15; Stop 04/28/20 at 10:59; Status DC Potassium Chloride (Klor-Con) 10 meq DAILY PO Last administered on 04/30/20at 08:40; Start 04/29/20 at 09:00; Stop 04/30/20 at 10:55; Status DC Nicotine (Nicoderm Cq 21mg) 1 patch DAILY TD Last administered on 05/01/20at 08:55; Start 04/28/20 at 12:00 Lorazepam (Ativan Inj) 1 mg PRN Q6HRS PRN IVP ANXIETY / AGITATION Last administered on 04/30/20at 22:31; Start 04/28/20 at 18:00 Multivitamins 10 ml/Thiamine HCl 100 mg/Folic Acid 1 mg/Sodium Chloride 1,011.2 ml @ 100 mls/ hr DAILY IV Last administered on 05/01/20at 09:56; Start 04/30/20 at 09:00; Stop 05/04/20 at 19:07 Thiamine HCl (Thiamine Im) 100 mg DAILY IM Last administered on 05/01/20at 08:58; Start 04/30/20 at 09:00; Stop 05/04/20 at 09:01 Levetiracetam 500 mg/Dextrose 105 ml @ 420 mls/hr Q12HR IV Last administered on 04/30/20at 04:49; Start 04/30/20 at 04:35; Stop 04/30/20 at 10:06; Status DC Levetiracetam (Keppra) 500 mg BID PO Last administered on 05/01/20at 08:57; Start 04/30/20 at 21:00 Potassium Chloride (Klor-Con) 20 meq DAILY PO Last administered on 05/01/20at 08:56; Start 05/01/20 at 09:00 Multivitamins/ Minerals (I-Alex) 1 tab DAILY PO ; Start 05/05/20 at 09:00 Gabapentin (Neurontin) 300 mg TID PO Last administered on 05/01/20at 08:56; Start 04/30/20 at 21:00 Active Scripts Active Reported NITROGLYCERIN SubLingual (Nitroglycerin) 0.4 Mg Tab.subl 0.4 Mg SL PRN Q5MIN PRN Benadryl (Diphenhydramine Hcl) 25 Mg Capsule 25 Mg PO PRN Q4HRS PRN Centrum Silver Men Tablet (Multivit-Min/FA/Lycopen/Lutein) 1 Each Tablet 1 Each PO DAILY Aspirin Ec (Aspirin) 325 Mg Tablet.dr 325 Mg PO DAILY Crestor (Rosuvastatin Calcium) 40 Mg Tablet 40 Mg PO HS Risperidone 1 Mg Tablet 1 Mg PO BID Carvedilol 25 Mg Tablet 25 Mg PO BIDWMEALS Lisinopril 10 Mg Tablet 10 Mg PO DAILY Potassium Chloride (Potassium Chloride) 10 Meq Capsule.er 10 Meq PO BID Vitals/I & O Vital Sign - Last 24 Hours 04/30/20 04/30/20 04/30/20 04/30/20 11:00 15:00 17:21 19:01 Temp 98.6 97.5 98.1 98.6 97.5 98.1 Pulse 95 96 96 91 Resp 18 18 20 B/P (MAP) 114/73 (87) 107/75 (86) 107/75 116/75 (89) Pulse Ox 95 100 98 O2 Delivery Room Air Room Air Room Air 04/30/20 04/30/20 05/01/20 05/01/20 19:45 22:35 03:10 07:00 Temp 99.1 97.6 98.1 99.1 97.6 98.1 Pulse 87 99 88 Resp 22 16 20 B/P (MAP) 135/73 (93) 173/111 (131) 132/64 (86) Pulse Ox 97 97 98 O2 Delivery Room Air Room Air Room Air Room Air 05/01/20 05/01/20 08:56 08:56 Pulse 99 99 B/P (MAP) 173/111 173/111 Intake and Output 04/30/20 04/30/20 05/01/20 15:00 23:00 07:00 Intake Total 200 ml 1625 ml 100 ml Output Total 0 ml 400 ml Balance 200 ml 1625 ml -300 ml Justicifation of Admission Dx: Justifications for Admission: Justification of Admission Dx: Yes CONNOR LEBLANC MD May 01, 2020 10:10
--- NOTE | 2020-05-01 10:11 | NUR ---
SS following up with discharge planning. SS reviewed pt chart and discussed with pt RN. Pt is currently on room air. Pt declining nursing home unit but agreeable to home healthcare with [facility], ; fax [phone]. Possible discharge to home today with home healthcare. SS will continue to follow for discharge planning.
[2020-05-01] MEDS ORDERED: GABA300C18 PO (10:15)
[2020-05-01] MEDS ORDERED: LEVE500T56 PO (10:15)
[2020-05-01] MEDS ORDERED: THIA100V3 IM (10:15)
--- NOTE | 2020-05-01 10:18 | SNU/HH DC ---
DISCHARGE WITH HOME HEALTH DISCHARGE INFORMATION: Discharge Date: May 01, 2020 Final Diagnosis: Problems alcoholism . syncope. alcohol withdrawal seizure gait dysfunction. coronary artery disease Medical Problems: (1) Syncope Status: Acute Condition on Discharge: Stable CODE STATUS: Code Status: Full HOME HEALTH: Face to Face: I certify this patient is under my care and that I, or a nurse practitioner or physician's chemist assistant working with me, had a face to face encounter that meets the physician face to face encounter requirements with this patient on [05/01/20]. RN For Eval/Treatment: Yes Physical Therapy For: Evalulation/Treatment Occupational Therapy For: Evaluation/Treatment Pt Meets Homebound Status: Unsteady balance w/ amb, POST DISCHARGE ORDERS: DIET AFTER DISCHARGE: Cardiac FOLLOW-UP: PCP to follow Home Health: dr. leblanc Follow up with: dr. leblanc next week CERTIFICATION STATEMENT: Certification Statement: Certification Statement: Based on the above finding, I certify that this patient is confined to the home and needs intermittent usp care, physical therapy and/or speech therapy, or continues to need occupational therapy.~ This patient is under my care, and I have initiated the establishment of the plan of care.~ This patient will be followed by myself or a community physician who will periodically review the plan of care. Home Meds Active Scripts Thiamine Hcl (THIAMINE HCL) 100 Mg/1 Ml Vial, 100 MG IM DAILY for vitamin, #30 EACH Prov:CONNOR LEBLANC MD 05/01/20 Levetiracetam (KEPPRA) 500 Mg Tablet, 500 MG PO BID for seizures, #60 TAB Prov:CONNOR LEBLANC MD 05/01/20 Gabapentin (GABAPENTIN) 300 Mg Capsule, 300 MG PO TID for enhance alcohol cessation, #90 CAP Prov:CONNOR LEBLANC MD 05/01/20 Reported Medications Nitroglycerin (NITROGLYCERIN SubLingual) 0.4 Mg Tab.subl, 0.4 MG SL PRN Q5MIN PRN for CHEST PAIN, BOTTLE 04/27/20 Multivit-Min/FA/Lycopen/Lutein (Centrum Silver Men Tablet) 1 Each Tablet, 1 EACH PO DAILY for , TAB 04/27/20 Aspirin (ASPIRIN EC) 325 Mg Tablet., 325 MG PO DAILY for , TAB.SR 04/27/20 Rosuvastatin Calcium (CRESTOR) 40 Mg Tablet, 40 MG PO HS for FOR CHOLESTEROL, #30 TAB 0 Refills 04/27/20 Risperidone (RISPERIDONE) 1 Mg Tablet, 1 MG PO BID for , TAB 04/27/20 Carvedilol (CARVEDILOL) 25 Mg Tablet, 25 MG PO BIDWMEALS for CARDIAC, TAB 04/27/20 Lisinopril (LISINOPRIL) 10 Mg Tablet, 10 MG PO DAILY for FOR HYPERTENSION, #30 TAB 0 Refills 04/27/20 Potassium Chloride (POTASSIUM CHLORIDE ) 10 Meq Capsule.er, 10 MEQ PO BID for , TAB.SR 02/12/16 Discontinued Reported Medications Diphenhydramine Hcl (BENADRYL) 25 Mg Capsule, 25 MG PO PRN Q4HRS PRN for ALLERGIES, CAP 04/27/20 Rosuvastatin Calcium (CRESTOR) 5 Mg Tablet, 1 TAB PO DAILY, #30 TAB 5 Refills 02/12/16 Risperidone (RISPERDAL) 0.25 Mg Tablet, 1 TAB PO BID, #60 TAB 1 Refill 02/12/16 Aspirin/Calcium Carbonate/Mag (ASPIRIN BUFFERED 325 MG TAB) 325 Mg Tablet, 325 MG PO 02/12/16 Carvedilol (COREG ) 3.125 Mg Tablet, 1 TAB PO BID, #180 TAB 1 Refill 02/12/16 Lisinopril (LISINOPRIL) 2.5 Mg Tablet, 1 TAB PO DAILY, #30 TAB 5 Refills 02/12/16 CONNOR LEBLANC MD May 01, 2020 10:18
--- NOTE | 2020-05-01 10:25 | PDOC ---
Provider Note Provider Note discharge summary dictated # [id number] Justicifation of Admission Dx: Justifications for Admission: Justification of Admission Dx: Yes CONNOR LEBLANC MD May 01, 2020 10:25
--- NOTE | 2020-05-01 10:49 | NUR ---
SS following up with discharge planning. Discharge orders received for home healthcare. SS phoned and faxed discharge orders to [facility], ; fax [phone]. Pt's RN notified.
[2020-05-01 11:00] VITALS: BP 116/73
--- NOTE | 2020-05-01 12:35 | DS ---
DATE OF DISCHARGE: 05/01/2020 CONSULTANTS: Include Dr. Hicks, Dr. Hilton and Dr. Kelly. FINAL DIAGNOSES: 1. Syncope. 2. Alcoholism. 3. Alcohol withdrawal seizure. 4. Thrombocytopenia secondary to alcoholism. 5. Hypertension. 6. Hyperlipidemia. 7. Coronary artery disease. 8. Cigarette smoker. 9. Alcoholic hepatitis. 10. History of chronic hypoxic encephalopathy related to previous cardiac arrest and he has an ICD in place. 11. Chronic kidney disease stage 2. 12. Gait dysfunction. 13. Thrombocytopenia, platelet count around 80,000. HOSPITAL COURSE: The patient is a 59-year-old -[place] male with history of hypertension, hyperlipidemia, coronary artery disease, alcoholism, cigarette smoker who had a sudden cardiac arrest, was resuscitated with an AICD placed several years ago, who has chronic hypoxic encephalopathy as a result of that and a myocardial infarction in 2001, admitted to [facility] through the Emergency Room on 04/27/2020 with a syncopal episode. He is a poor historian and he does drink excessive alcohol and smokes cigarettes. He had a syncopal episode last and apparently on the day of admission and he was admitted to the hospital. He was seen by Cardiology, did not have any arrhythmias. Echocardiogram was okay, did not have orthostatic hypotension. While he was here, he had an alcohol withdrawal seizure. CAT scan of the brain done several times was negative for acute change, seen by Dr. Hicks in consultation who noted he had an alcohol withdrawal seizure with a normal electroencephalogram, but he was started on Keppra 500 mg b.i.d. and he has not had any recurrent seizures ____. He was seen by Physical Therapy and had some gait dysfunction. He declined going to detention facility, but agreed to home health and physical therapy. His blood pressure was under good control. He did not have any arrhythmias. He will be dismissed to home with home health. Seen in consultation by Dr. Kelly who felt that the patient had thrombocytopenia due to his alcoholism. He will be dismissed to home on aspirin 325 mg every day, carvedilol 25 mg b.i.d., Crestor 40 mg every day, lisinopril 10 mg every day, multiple vitamin once a day, thiamine 100 mg every day, nitroglycerin 0.4 mg sublingual p.r.n., potassium chloride 10 mEq b.i.d., risperidone 1 mg b.i.d., gabapentin 300 mg 1 tablet t.i.d. and Keppra 500 mg b.i.d. He was told to avoid alcohol and smoking cigarettes and to continue with the nicotine patch 21 mg every day for 3 weeks, 14 mg every day for 3 weeks and 7 mg every day for 3 weeks, but was told to stop using the nicotine patch should he start smoking. He was strongly advised not to drink alcohol. He declined going to detention facility which is physical therapist recommended and will be dismissed to home with home health, told to make an appointment to see Dr. Ruiz next week. CONNOR RUIZ MD DR: JULIA/nts JOB#: [id number] / [id number]
--- NOTE | 2020-05-01 15:06 | NUR ---
Discharge Note: [facility] Discharge instructions and discharge home medications reviewed with Patient and family member with a copy given. All questions have been answered and understanding verbalized. The following instructions and handouts were given: tips to quit smoking, how to get treatment for alcohol, seizure precautions Discontinued lines and drains: IV catheter removed intact. tele monitor removed Patient discharged to Home with Home health via wheelchair.
[2020-05-05] MEDS ORDERED: MULTIVITAMIN I-VITE TABLET. PO SCH (09:00)
== END 2020-05-01 14:48 | disposition home health service (06) | DRG 74 ==
LOC: ER 13:26 → 2 SOUTH 16:46
PROVIDERS: ADMIT Internal Medicine; ATTEND Internal Medicine
PROC: 4A00X4Z Measurement of Central Nervous Electrical Activity, External Approach (ICD-10-PCS; principal; 2020-04-29)
PROC: 4B02XTZ Measurement of Cardiac Defibrillator, External Approach (ICD-10-PCS; 2020-04-30)
DX: G90.8 Other disorders of autonomic nervous system (principal); G40.89 Other seizures; F10.27 Alcohol dependence with alcohol-induced persisting dementia; G93.1 Anoxic brain damage, not elsewhere classified; D69.59 Other secondary thrombocytopenia; E78.00 Pure hypercholesterolemia, unspecified; E78.5 Hyperlipidemia, unspecified; F17.210 Nicotine dependence, cigarettes, uncomplicated; F39 Unspecified mood [affective] disorder; G47.00 Insomnia, unspecified; G47.33 Obstructive sleep apnea (adult) (pediatric); I12.9 Hypertensive chronic kidney disease with stage 1 through stage 4 chronic kidney disease, or unspecified chronic kidney disease; I25.10 Atherosclerotic heart disease of native coronary artery without angina pectoris; I25.5 Ischemic cardiomyopathy; I48.91 Unspecified atrial fibrillation; J43.9 Emphysema, unspecified; K70.10 Alcoholic hepatitis without ascites; N18.2 Chronic kidney disease, stage 2 (mild); Z96.649 Presence of unspecified artificial hip joint; F32.9 Major depressive disorder, single episode, unspecified; K21.9 Gastro-esophageal reflux disease without esophagitis; W18.30XA Fall on same level, unspecified, initial encounter; Z79.82 Long term (current) use of aspirin; Z79.899 Other long term (current) drug therapy; Z86.74 Personal history of sudden cardiac arrest; I25.2 Old myocardial infarction; Z82.49 Family history of ischemic heart disease and other diseases of the circulatory system; Z85.048 Personal history of other malignant neoplasm of rectum, rectosigmoid junction, and anus; Z85.46 Personal history of malignant neoplasm of prostate; Z86.79 Personal history of other diseases of the circulatory system; Z87.81 Personal history of (healed) traumatic fracture; Z87.820 Personal history of traumatic brain injury; Z91.19 Patient's noncompliance with other medical treatment and regimen; Z95.5 Presence of coronary angioplasty implant and graft; Z95.810 Presence of automatic (implantable) cardiac defibrillator; Y93.89 Activity, other specified; Y92.89 Other specified places as the place of occurrence of the external cause; Y99.8 Other external cause status
CPT/HCPCS: 36415; 70450; 71046; 80048; 80061; 80076; 81001; 82607; 82962; 83735; 84484; 85025; 93005; 93306; 95816; J1953; J2060; J3411; J3490; J7030; J7060; 97530-GP; 99285-25; G0378; Q0163

== ENCOUNTER → 2020-05-03 | Outpatient (CLI) | payer MEDICARE, BC ==
[2020-05-01 11:00] VITALS: BP 116/73
[~2020-05-03] MED LIST changes: +ASPI325T11 PO; +CARV25TA2 PO; +CRESTOR40 MG PO; +DIPH25CA58 PO; +GABA300C18 PO; +LEVE500T56 PO; +LISI10TA2 PO; +MULT-690 PO; +NITR0.4T22 SL; +RISP1TAB3 PO; +THIA100V3 IM
[2020-05-03 15:11] LABS: BASO # 0.1 x10^3/uL (0.0-0.2); BASO % 1 % (0-3); EOS # 0.4 x10^3/uL (0.0-0.7); EOS % 6 % (0-3); HEMATOCRIT 38.6 % (39.0-53.0); HEMOGLOBIN 12.9 g/dL (13.0-17.5); LYMPH # 1.6 x10^3/uL (1.0-4.8); LYMPH % 24 % (24-48); MEAN CORPUSCULAR HEMOGLOBIN 33 pg (25-35); MEAN CORPUSCULAR HGB CONC 33 g/dL (31-37); MEAN CORPUSCULAR VOLUME 99 fL (79-100); MONO % 14 % (0-9); NEUT # 3.6 x10^3/uL (1.8-7.7); NEUT % 54 % (31-73); PLATELET COUNT 70 x10^3/uL (140-400); RED CELL DISTRIBUTION WIDTH 15.1 % (11.5-14.5); WHITE BLOOD COUNT 6.7 x10^3/uL (4.0-11.0)
[2020-05-03 15:30] LABS: CALCIUM 8.7 mg/dL (8.5-10.1); CREATININE 1.5 mg/dL (0.7-1.3); GFR 57.8; POTASSIUM 4.2 mmol/L (3.5-5.1)
== END | disposition home or self-care (01) ==
LOC: SPEC 14:42
PROVIDERS: ATTEND Internal Medicine
DX: E87.5 Hyperkalemia (principal)
CPT/HCPCS: 36415; 80048; 85025